=== PATIENT | female | born 1945 | race Caucasian/White ===

== ENCOUNTER 2019-08-06 10:51 | Outpatient (RCR) | payer MEDICARE, SELFPAY ==
--- NOTE | 2019-08-06 11:42 | PTOPEVAL ---
Thank you for referring this patient to [facility] [place]. Please review, sign, date and return this plan of care CONNOR. I agree with and certify that the following plan of care is medically necessary. Referring Physician Date Admitting Provider: Attending Provider: Jaret Epps, PAINTING MANAGER Referring Provider: *PT Outpatient Evaluation Start: 08/06/19 11:01 Freq: Status: Active Protocol: Document 08/06/19 11:10 [facility] (Rec: 08/06/19 11:37 [id number]) Therapy Assessment Status Assessment Status Assessment Status Evaluation Evaluation Information Problem Diagnosis L posterior shoulder pain Onset 08/01/19 Additional Evaluation Detail quick dash= 27% Subjective Information patient reports she has been Query Text:As Reported By Patient/ having pain in the L posterior Family shoulders/scapular area for the past 6 months or so. she reports the pain will come and go, but ultimately has gotten progressively worse for these past 6 months. she reports she has had an x-ray of the L shoudler/scapular area. she reports no injections recently . Prior Level of Function Comments Additional Prior Level of Function patient reports she has had Comments similar pain in the past. however, she reports prior to her flare up 6 months ago she was doing well with all activities and no pain in the L side scapular area/back/ shoulder. she reports increased pain with cleaning windows and vacuuming at home. she reports she is unable to reach behind her back fully with the L shoulder/arm. Pain Assessment Timing of Pain Assessment Timing of Pain Assessment Assessment Pain Scale Pain Scale Used Numeric (1 - 10) Self Report Pain Assessment Left Posterior Shoulder(s) Reported Pain Level 0 Current Pain Intensity 0 Lowest Pain Intensity 0 Greatest Pain Intensity 7 Pain Aggravating Factors Changing Position,Exercise/ Activity,Other Pain Aggravating Factors Other Pain Aggravating Factors cleaning home/getting dressed Pain Score Pain Score 0: Self Report Upper Extremit
== END 2019-09-03 13:40 | disposition home or self-care (01) ==
LOC: CHSPT 10:51
PROVIDERS: PCP Nurse Practitioner Family; Visit Provider Nurse Practitioner Family
DX: M25.512 Pain in left shoulder (principal)
CPT/HCPCS: 97014; 97110; 97140; 97161; G0283

== ENCOUNTER 2020-02-10 11:53 | Outpatient (CLI) | payer MEDICARE, SELFPAY ==
[2020-02-10 12:05] LABS: Basophils Absolute Auto 0.04 K/mm3 (0.00-0.10); Basophils Percent Auto 0.6 % (0.0-1.0); Eosinophils Absolute Auto 0.19 K/mm3 (0.02-0.50); Eosinophils Percent Auto 2.7 % (1.0-6.0); Hematocrit 38.6 % (35.0-42.0); Hemoglobin 12.7 g/dL (11.7-13.8); Immature Granulocyte Absolute 0.02 K/mm3 (0.00-0.00); Immature Granulocyte Percent A 0.3 % (0.0-0.0); Lymphocytes Absolute Auto 1.68 K/mm3 (1.10-4.50); Lymphocytes Percent Auto 23.8 % (18.0-42.0); Mean Corpuscular HGB Conc 32.9 g/dL (32.0-36.0); Mean Corpuscular Hemoglobin 30.2 pg (27.0-31.0); Mean Corpuscular Volume 91.7 fL (78.0-102.0); Mean Platelet Volume 9.7 fl (9.2-11.8); Monocytes Absolute Auto 0.59 K/mm3 (0.10-0.90); Monocytes Percent Auto 8.3 % (2.0-11.0); Neutrophils Absolute Auto 4.6 K/mm3 (1.7-7.2); Neutrophils Percent Auto 64.3 % (50.0-70.0); Platelet Count Result 268 K/mm3 (150-420); Red Blood Count 4.21 M/mm3 (4.20-5.40); Red Cell Distribution Width 12.7 % (11.6-14.4); White Blood Count 7.1 K/mm3 (4.8-10.8)
[2020-02-10 13:21] LABS: Alanine Aminotransferase 17 U/L (14-59); Albumin Level 3.8 g/dL (3.4-5.0); Alkaline Phosphatase 61 U/L (46-116); Anion Gap 5 mmol/L (8-16); Aspartate Amino Transferase 23 U/L (15-37); Bilirubin,Total 0.5 mg/dL (0.00-1.00); Blood Urea Nitrogen 32 mg/dL (7-18); Calcium 9.3 mg/dL (8.5-10.1); Carbon Dioxide 32 mmol/L (21-32); Chloride 103 mmol/L (98-108); Cholesterol 228 mg/dL (0-200); Estimated Glomerular Filt Rate 31; Glucose 100 mg/dL (70-99); HDL Direct 42 mg/dL (40-60); LDL Cholesterol Calculated 158 mg/dL (<130); Magnesium 1.9 mg/dL (1.8-2.4); Osmolality Calculated 296 mOsm/kg (285-295); Potassium 4.1 mmol/L (3.5-5.1); Sodium 140 mmol/L (136-145); Thyroid Stimulating Hormone 0.76 uIU/mL (0.36-3.74); Total Protein 7.5 g/dL (6.4-8.2); Triglycerides 138 mg/dL (0-150); Vitamin B12 586 pg/mL (193-986)
[2020-02-12 12:27] LABS: Vitamin D 25 Hydroxy 64 ng/mL (30-100)
== END 2020-02-10 11:54 | disposition home or self-care (01) ==
LOC: CHSLAB 11:56
PROVIDERS: PCP Nurse Practitioner Family; Visit Provider Family Medicine
DX: E55.9 Vitamin D deficiency, unspecified (principal); I10 Essential (primary) hypertension; Z79.899 Other long term (current) drug therapy; E03.9 Hypothyroidism, unspecified; R25.2 Cramp and spasm; G47.00 Insomnia, unspecified
CPT/HCPCS: 36415; 80053; 80061; 82306; 82607; 83735; 84443; 85025

== ENCOUNTER 2020-03-02 10:22 | Outpatient (CLI) | payer MEDICARE, SELFPAY ==
--- NOTE | ~2020-03-02 | XR_ITS ---
EXAMINATION: XR lumbar spine 2-3V DATE: 03/02/2020 10:53 INDICATION: Acute back pain TECHNIQUE: Anteroposterior and lateral views of the lumbar spine, and cone-down lateral view of the l umbosacral junction were obtained. COMPARISON: 08/16/2017 FINDINGS: Lumbar dextrocurvature is noted. The vertebral body heights and alignment are maintained. T here is moderate loss of intervertebral disc space height throughout the lumbar spine. Degenerative o steophytes project from the anterior endplates of multiple vertebral bodies. There is mild to moderat e facet osteoarthritis of the lower lumbar spine. Calcified atherosclerosis is noted. IMPRESSION: 1. Moderate lumbar spondylosis without acute findings or significant interval change. Reviewed, dictated and finalized at location A. IMPRESSION: 1. Moderate lumbar spondylosis without acute findings or significant interval ricky russell
== END 2020-03-02 10:23 | disposition home or self-care (01) ==
LOC: CHSIMG 10:26
PROVIDERS: PCP Nurse Practitioner Family; Visit Provider Nurse Practitioner Family
DX: M54.5 Low back pain (principal)
CPT/HCPCS: 72100

== ENCOUNTER 2020-07-09 10:35 | Outpatient (CLI) | payer MEDICARE, SELFPAY ==
[2020-07-09 23:33] LABS: SARS-CoV-2 RNA PCR Positive
== END 2020-07-09 10:36 | disposition home or self-care (01) ==
LOC: CHSLAB 10:38
PROVIDERS: PCP Nurse Practitioner Family; Visit Provider Nurse Practitioner Family
DX: U07.1 COVID-19 (principal); R50.9 Fever, unspecified; R51.9 Headache, unspecified; M25.50 Pain in unspecified joint
CPT/HCPCS: C9803; U0003

== ENCOUNTER 2020-11-28 10:13 | Outpatient (CLI) | payer MEDICARE, SELFPAY ==
--- NOTE | ~2020-11-28 | US_ITS ---
EXAMINATION: US venous doppler [facility] DATE: 11/28/2020 11:12 INDICATION: Lower limb pain. TECHNIQUE: Grayscale ultrasound images without and with compression and Doppler ultrasound images of the bilateral lower extremity veins were obtained. COMPARISON: None. FINDINGS: The visualized portions of right common femoral vein, profunda (deep) femoral vein, femoral vein, pop liteal vein, peroneal veins, posterior tibial veins, and greater saphenous vein outflow are patent. The visualized portions of left common femoral vein, profunda femoral vein, femoral vein, popliteal v ein, peroneal veins, posterior tibial veins, and greater saphenous vein outflow are patent. IMPRESSION: 1. No deep venous thrombosis. Reviewed, dictated and finalized at location A.
--- NOTE | ~2020-11-28 | CT_ITS ---
EXAMINATION: CT abdomen wo con DATE: 11/28/2020 10:50 INDICATION: Abdominal pain TECHNIQUE: Computed tomography (CT) of the abdomen was performed without intravenous contrast. The do se-length product was 119.83 mGy-cm. Automated exposure control and iterative reconstruction techniqu e were employed. COMPARISON: CT dated 07/12/2018 FINDINGS: Multiple liver cysts. Heart size normal. No significant pleural or pericardial effusion. Mo derate diffuse atherosclerosis without aneurysm. Calcified granulomas of the spleen. The pancreas, ad renal glands and kidneys are unremarkable. No lymphadenopathy. Nonobstructive bowel gas pattern. No f ree air or free fluid. No soft tissue abnormality. Moderate lumbar spondylosis. IMPRESSION: 1. No acute abdominal abnormality. Reviewed, dictated and finalized at location A.
== END 2020-11-28 10:14 | disposition home or self-care (01) ==
LOC: ANHIMG 10:21
PROVIDERS: PCP Nurse Practitioner Family; Visit Provider Nurse Practitioner Family
DX: M79.661 Pain in right lower leg (principal); M79.662 Pain in left lower leg
CPT/HCPCS: 74150; 93970

== ENCOUNTER 2020-12-31 15:11 | Outpatient (CLI) | payer MEDICARE, SELFPAY ==
--- NOTE | ~2020-12-31 | US_ITS ---
EXAMINATION: US carotid duplex BI DATE: 12/31/2020 16:00 INDICATION: Left carotid bruit. TECHNIQUE: Grayscale, color Doppler, and pulsed Doppler images of the cervical carotid arteries were obtained. The degree of vessel stenosis is placed in one of the following categories: normal, <50%, 5 0-69%, >=70% but less than near-occlusion, near-occlusion, or total occlusion. Note that percent sten osis relative to normal distal artery lumen diameter is indirectly measured from velocity measurement s as described by Chicho, et al. Radiology 2003; 229:340-346. COMPARISON: None. FINDINGS: RIGHT: The right common carotid artery (CCA) peak systolic velocity (PSV) is 74 cm/s. The right internal car otid artery (ICA) PSV is 110 cm/s. The right ICA end-diastolic velocity (EDV) is 22 cm/s. The right I CA/CCA PSV ratio is 1.5. Grayscale and color Doppler images yield an estimate of <50% diameter reduct ion from plaque in the ICA. There is antegrade flow in the right vertebral artery. LEFT: The left CCA PSV is 83 cm/s. The left ICA PSV is 135 cm/s. The left ICA EDV is 32 cm/s. The left ICA/ CCA PSV ratio is 1.6. Grayscale and color Doppler images yield an estimate of <50% diameter reduction from plaque in the ICA. There is antegrade flow in the left vertebral artery. IMPRESSION: 1. <50% stenosis in the right internal carotid artery. 2. <50% stenosis in the left internal carotid artery. Reviewed, dictated and finalized at location A.
--- NOTE | ~2020-12-31 | CT_ITS ---
EXAMINATION: CT diagnostic chest wo con EXAM DATE: 12/31/2020 15:31 INDICATION: Ascending aortic aneurysm. Breast cancer. TECHNIQUE: Spiral CT of the chest without contrast. Axial, coronal and sagittal images of the chest were reviewed. Coronal maximum intensity pixel images of chest reviewed. The dose-length product ( DLP) for this examination was 126.87 mGy-cm. The exposure was tailored according to patient size (au to mA exposure control), and iterative reconstruction (ASIR) was used as additional dose reduction te chnique. There is no prior study for comparison. FINDINGS: The ascending aorta is normal in caliber, may have been treated for aneurysm, correlate wit h surgical history. There is descending thoracic aortic arterial sclerosis and ectasia, diameter up t o 3.9 cm just along arch distal to the left subclavian. There is mild biapical scarring. There are n o pleural or pericardial effusions. Tracheobronchial tree is patent. There is no mediastinal, hil ar or axillary lymphadenopathy. There is no pneumothorax. Heart normal in size. There are hendrickson otomy wires, and cardiac/coronary surgical changes. Correlate with prior history. Multiple liver flu id density lesions probably cysts. There is thoracic spondylosis without osteoblastic or osteolytic lesions identified. Mild IMPRESSION: 1. 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 Reviewed, dictated and finalized at location A.
== END 2020-12-31 15:12 | disposition home or self-care (01) ==
LOC: ANHIMG 15:13
PROVIDERS: PCP Nurse Practitioner Family; Visit Provider Internal Medicine Cardiovascular Disease
DX: I71.2 Thoracic aortic aneurysm, without rupture (principal); R09.89 Other specified symptoms and signs involving the circulatory and respiratory systems; I65.23 Occlusion and stenosis of bilateral carotid arteries
CPT/HCPCS: 71250; 93880

== ENCOUNTER 2021-03-03 09:57 | Outpatient (CLI) | payer MEDICARE, SELFPAY ==
--- NOTE | ~2021-03-03 | US_ITS ---
EXAMINATION: US soft tissue head and neck EXAM DATE: 03/03/2021 10:18 INDICATION: R59.1 - Generalized enlarged lymph nodes. TECHNIQUE: Multiple grayscale and Doppler images of the cervical internal jugular chains were obtaine d (by a technologist who performed the scan) and subsequently reviewed. There is no prior study for comparison. FINDINGS: Scanning along the internal jugular chains demonstrated small, morphologically normal cervical lymph nodes, unremarkable sternocleidomastoid muscle. No suspicious findings. IMPRESSION: 1. Unremarkable ultrasound exam. Reviewed, dictated and finalized at location B.
== END 2021-03-03 09:58 | disposition home or self-care (01) ==
LOC: CHSIMG 10:00
PROVIDERS: PCP Family Medicine; Visit Provider Family Medicine
DX: R59.1 Generalized enlarged lymph nodes (principal)
CPT/HCPCS: 76536

== ENCOUNTER 2021-07-12 10:24 | Outpatient (CLI) | payer MEDICARE, SELFPAY ==
--- NOTE | ~2021-07-12 | CT_ITS ---
EXAMINATION:CT diagnostic chest wo con DATE: 07/12/2021 10:45 INDICATION: Ascending aortic aneurysm. TECHNIQUE: Computed tomography (CT) of the chest was performed without intravenous contrast. Automate d exposure control and iterative reconstruction technique were employed. The dose-length product (DLP ) was 143.91 mGy-cm. COMPARISON: Chest CT 12/31/2020 FINDINGS: There is mild scarring at the lung apices. There is mild peripheral radiation fibrosis in a nterolateral right lung. There is mild paraspinal scarring in right lower lobe. A calcified right ivon g nodule and calcified right hilar lymph nodes are consistent with old granulomatous disease. No pleu ral effusion. There is left atrial enlargement of the heart. There are coronary artery calcifications . No pericardial effusion. The central pulmonary arteries are enlarged, consistent with pulmonary art erial hypertension. There is a tube graft in ascending aorta. The aorta measures 3.4 cm at the isthmu s and up to 4.0 cm in the proximal descending aorta. The aorta measures 3.3 cm in mid descending aort a. There are cysts in the liver measuring up to 2.1 cm. Calcifications in the spleen are consistent w ith old granulomatous disease. There is mild thoracic spondylosis. IMPRESSION: 1. Tube graft repair of ascending aorta. Stable ectasia of descending aorta measuring 4.0 cm. Reviewed, dictated and finalized at location B. TRANSMISSION MECHANIC IMPRESSION: 1. Tube graft repair of ascending aorta. Stable ectasia of descending aorta keri suring 4.0 cm.
== END 2021-07-12 10:25 | disposition home or self-care (01) ==
LOC: ANHIMG 10:33
PROVIDERS: PCP Nurse Practitioner Family; Visit Provider Internal Medicine Cardiovascular Disease
DX: I71.2 Thoracic aortic aneurysm, without rupture (principal); Z95.828 Presence of other vascular implants and grafts
CPT/HCPCS: 71250

== ENCOUNTER 2022-08-05 13:20 | Outpatient (CLI) | payer MEDICARE, SELFPAY ==
--- NOTE | ~2022-08-05 | CT_ITS ---
EXAMINATION: CTA chest DATE: 08/05/2022 13:59 INDICATION: Aneurysm of the ascending aorta. TECHNIQUE: Computed tomographic angiography (CTA) of the chest was performed with 100 mL Omnipque-350 intravenous contrast. Maximum intensity projection 3D-reconstructions of the aorta and other arterie s were constructed by the technologist on a separate workstation. The dose-length product (DLP) was 2 09.89 mGy-cm. Automated exposure control and iterative reconstruction technique were employed. COMPARISON: 07/12/2021 FINDINGS: Again seen is stable graft repair of the ascending aorta. The aorta measures up to 3.9 cm i n the proximal descending aorta. There is no dissection of the aorta. There is enlargement of the jimmie n and central pulmonary arteries, consistent with pulmonary hypertension. There is mild dependent ate lectasis. No pleural effusion or pneumothorax. There is left atrial enlargement of the heart. There a re no pathologically enlarged thoracic lymph nodes. Calcified pulmonary nodules and calcified right h ilar lymph nodes are consistent with old granulomatous disease. Cysts of the visualized liver measure up to 2.1 cm. Punctate calcifications in an otherwise normal spleen likely represent healed granulom atous disease. There is mild thoracic spondylosis. IMPRESSION: 1. Stable ectasia of the descending aorta. 2. Stable ascending aorta repair without aneurysm or dissection. 3. Findings consistent with pulmonary hypertension. Reviewed, dictated and finalized at location B. LANCE WEB DESIGNER
[2022-08-05 13:49] LABS: Estimated Glomerular Filt Rate 40
== END 2022-08-05 13:21 | disposition home or self-care (01) ==
PROVIDERS: PCP Family Medicine; Visit Provider Internal Medicine Cardiovascular Disease
DX: I71.21 Aneurysm of the ascending aorta, without rupture (principal); I71.23 Aneurysm of the descending thoracic aorta, without rupture
CPT/HCPCS: 71275; Q9967

== ENCOUNTER 2022-10-24 13:42 | Outpatient (CLI) | payer MEDICARE, SELFPAY ==
--- NOTE | ~2022-10-24 | CT_ITS ---
EXAMINATION: CT cervical spine wo con DATE: 10/24/2022 14:09 INDICATION: Left-sided back pain. TECHNIQUE: Computed tomography (CT) of the cervical spine was performed without intravenous contrast. Automated exposure control and iterative reconstruction technique were employed. The dose-length pro duct was 140.16 mGy-cm. COMPARISON: None FINDINGS: There is mild scarring at the lung apices. There is 6 degrees dextrocurvature of cervical s pine. There is mild kyphosis of cervical spine. Vertebral body heights are normal. There is mildly de creased disc height at C2-C3 and severely decreased disc height from C3-C4 through C6-C7 with endplat e remodeling. The following disc levels are specifically discussed: C2-C3: There is mild bilateral uncovertebral joint osteoarthritis. There is mild right and severe lef t facet joint osteoarthritis. There is mild left neural foraminal stenosis. There is no central canal stenosis. C3-C4: There is severe bilateral uncovertebral joint osteoarthritis. There is severe right and modera te left facet joint osteoarthritis. There is mild bilateral neural foraminal stenosis. There is mild central canal stenosis. C4-C5: There is severe bilateral uncovertebral joint osteoarthritis. There is moderate right and irma re left facet joint osteoarthritis. There is mild bilateral neural foraminal stenosis. There is mild central canal stenosis. C5-C6: There is severe bilateral uncovertebral joint osteoarthritis. There is mild bilateral facet yosvany int osteoarthritis. There is mild bilateral neural foraminal stenosis. There is mild central canal st enosis. C6-C7: There is severe bilateral uncovertebral joint osteoarthritis. There is mild bilateral facet yosvany int osteoarthritis. There is mild bilateral neural foraminal stenosis. There is mild central canal st enosis. C7-T1: There is mild bilateral uncovertebral joint osteoarthritis. There is mild right and severe lef t facet joint osteoarthritis. There is mild left neural foraminal stenosis. There is no central canal stenosis. IMPRESSION: 1. Severe cervical spondylosis. Reviewed, dictated and finalized at location A.
--- NOTE | ~2022-10-24 | CT_ITS ---
EXAMINATION: CT thoracic lumbar wo con DATE: 10/24/2022 14:10 INDICATION: Chronic left-sided thoracic back pain. TECHNIQUE: Computed tomography (CT) of the thoracic and lumbar spine was performed without intravenou s contrast. Automated exposure control and iterative reconstruction technique were employed. The dose -length product was 457.63 mGy-cm. COMPARISON: chest CT 08/05/22 FINDINGS: CT THORACIC SPINE: There is mild scarring at the lung apices. Calcified right hilar lymph nodes are c onsistent with old granulomatous disease. Aortic atherosclerosis is noted. The aortic isthmus measure s 3.9 cm in diameter. There are coronary artery calcifications. There is 4 degrees levocurvature of t horacic spine. Vertebral body heights are normal. There is mildly decreased disc height at T2-T3 and T6-T7. There is moderately decreased disc height at T7-T8 and T8-T9, mildly decreased disc height at T9-T10 and T10-T11, and moderately decreased disc height at T11-T12. There is multilevel mild facet j oint osteoarthritis. No neural foraminal stenosis. There is mild central canal stenosis at T7-T8, T8- T9, and T9-T10. CT LUMBAR SPINE: There is a 2.2 cm cyst in left kidney. There is 6 degrees dextrocurvature of lumbar spine. Vertebral body heights are normal. There is moderately decreased disc height at L1-L2 and irma rely decreased disc height from L2-L3 through L5-S1 with endplate remodeling. The following disc leve ls are specifically discussed: L1-L2: The disc is bulging. There is mild bilateral facet joint osteoarthritis. There is mild bilater al neural foraminal stenosis. There is mild central canal stenosis. L2-L3: The disc is bulging. There is mild bilateral facet joint osteoarthritis. There is mild bilater al neural foraminal stenosis. There is mild central canal stenosis. L3-L4: The disc is bulging. There is mild right and severe left facet joint osteoarthritis. There is mild right and moderate left neural foraminal stenosis. There is mild central canal stenosis. L4-L5: The disc is bulging. There is severe bilateral facet joint osteoarthritis. There is mild bilat eral neural foraminal stenosis. There is mild central canal stenosis. L5-S1: The disc is bulging. There is severe bilateral facet joint osteoarthritis. There is mild bilat eral neural foraminal stenosis. There is mild central canal stenosis. IMPRESSION: 1. Moderate thoracic spondylosis and severe lumbar spondylosis. Reviewed, dictated and finalized at location A.
== END 2022-10-24 13:43 | disposition home or self-care (01) ==
PROVIDERS: PCP Family Medicine; Visit Provider Family Medicine
DX: M47.894 Other spondylosis, thoracic region (principal); M47.896 Other spondylosis, lumbar region; M47.892 Other spondylosis, cervical region
CPT/HCPCS: 72125; 72128; 72131

== ENCOUNTER → 2022-12-23 08:10 | Outpatient (CLI) | payer MEDICARE, SELFPAY ==
--- NOTE | ~2022-12-23 | CT_ITS ---
CT scan of the Neck Technique: 2.5 mm axial scans were obtained through the neck after intravenous administration of 75 c c Omnipaque 350. Coronal and sagittal reconstructions of the neck were obtained. Dose reduction techn ique was used on this scan by utilizing automated exposure control and iterative reconstruction techn ique. The dose-length product (DLP) was 382.58 mGy-cm. Clinical History: Cervical lymphadenopathy Findings: There is no evidence of any significant cervical lymphadenopathy. Several small, nonenlarged jugulo- digastric and posterior cervical lymph nodes are noted bilaterally. Parapharyngeal spaces appear norm al bilaterally. There is mild asymmetric prominence of the left submandibular gland, probably normal variant. Parotid glands are unremarkable. The pharyngeal mucosal spaces appear normal. No soft tissue masses are seen in the neck. The thyroid gland appears normal. Images of the lung apices reveal no abnormalities. There are extens giulia atherosclerotic calcification of the upper thoracic aorta/aortic arch, the aortic arch measuring up to 4 cm in diameter. Impression: Mild asymmetric prominence of the left submandibular gland, which could account for the clinical find ing of left-sided neck swelling. No lymphadenopathy. Ectasia of the aortic arch with extensive atherosclerotic calcification. Reviewed, dictated and finalized at location . Impression: Mild asymmetric prominence of the left submandibular gland, which could account for the clinical finding of left-sided neck swelling. No lymphadenopathy. Ectasia of the aortic arch with extensive atherosclerotic calcification.
[2022-12-23 08:49] LABS: Estimated Glomerular Filt Rate 34
== END ==
PROVIDERS: PCP Family Medicine; Visit Provider Family Medicine
DX: I70.0 Atherosclerosis of aorta (principal); R59.0 Localized enlarged lymph nodes
CPT/HCPCS: 70491; Q9967

== ENCOUNTER 2023-05-31 01:10 | Day surgery (SDC) | payer MEDICARE, SELFPAY ==
[2023-05-30 16:55] VITALS: BMI 20.1
[2023-05-31] VITALS (8 sets, daily range): BP systolic 137–156; BP diastolic 52–70; PULSE 60–98; RESP 13–20; TEMP 36.7; O2SAT 95–98; BMI 20.5
[2023-05-31 10:25] LABS: Basophils Absolute Auto 0.1 K/mm3 (0.0-0.1); Basophils Percent Auto 0.8 % (0.2-1.2); Eosinophils Absolute Auto 0.3 K/mm3 (0-0.3); Eosinophils Percent Auto 3.4 % (0-4.4); Hematocrit 42.1 % (37.0-47.0); Hemoglobin 13.1 g/dL (12.0-15.0); Immature Granulocyte Absolute 0.02 K/mm3 (0.00-0.031); Immature Granulocyte Percent A 0.3 % (0-0.5); Lymphocytes Absolute Auto 1.79 K/mm3 (0.9-3.2); Lymphocytes Percent Auto 24.7 % (18.3-44.2); Mean Corpuscular HGB Conc 31.1 g/dl (32-36); Mean Corpuscular Hemoglobin 29.1 pg (26-34); Mean Corpuscular Volume 93.6 fl (80-100); Mean Platelet Volume 9.5 fl (7.4-10.4); Monocytes Absolute Auto 0.5 K/mm3 (0.1-0.6); Monocytes Percent Auto 7.2 % (2.6-8.5); Neutrophils Absolute Auto 4.6 K/mm3 (1.3-6.7); Neutrophils Percent Auto 63.6 % (45.5-73.1); Platelet Count Result 216 k/mm3 (150-375); White Blood Count 7.3 K/mm3 (4.5-10.0)
[2023-05-31 10:35] LABS: Anion Gap 11 mmol/L (8-16); Blood Urea Nitrogen 17 mg/dL (7-17); Calcium 9.4 mg/dL (8.4-10.2); Carbon Dioxide 24 mmol/L (22-30); Chloride 106 mmol/L (98-107); Estimated CRCL calculation 40 ml/min; Estimated Glomerular Filt Rate > 60; Glucose 108 mg/dL (65-110); Potassium 3.8 mmol/L (3.4-5.0); Sodium 141 mmol/L (137-145)
--- NOTE | 2023-05-31 11:31 | PM.IMHP ---
H&P: HPI History of Present Illness Date/Time: 05/31/23 11:31 Chief Complaint: Cardiomyopathy Narrative: Patient is a 77 year old female who presents for an outpatient elective cardiac catheterization for ischemic evaluation for recent diagnosis of reduced LVEF. No chest pain. Has occasional shortness of breath during summer time but none currently. Review of Systems Review of Systems: All systems reviewed & are unremarkable except as noted in HPI and below (HPI) [facility] Past Medical History Medical History History of aortic aneurysm 2011 History of breast cancer 2001 Hypertension Surgical History Surgical History History of lumpectomy of right breast Family History Family History Father Hypertension CHF (congestive heart failure) Social History Social History Smoking packs per day: 0 Smoking cigarettes per day: 0.0 Years smoked: 0 Smoking pack-years: 0.00 Smoking status: Never smoker Second hand tobacco smoke exposure: No Alcohol intake: never Substance use: never Substance use type: does not use Living arrangements: with family Additional living arrangements comments: lives w/, Gamaliel Spiritual care concerns: No Meds Home Medications and Allergies Home Medications Medication Instructions Recorded Confirmed Type aspirin 81 mg tablet,delayed 81 mg PO DAILY 03/01/21 05/31/23 History release (Adult Low Dose Aspirin) brimonidine 0.2 %-timolol 0.5 % 1 drp RIGHT EYE QAM 03/01/21 05/31/23 History eye drops (Combigan) cholecalciferol (vitamin D3) 50 50 mcg PO DAILY 03/01/21 05/31/23 History mcg (2,000 unit) capsule levothyroxine 50 mcg tablet 50 mcg PO DAILY 03/01/21 05/31/23 History metoprolol succinate 25 mg 25 mg PO DAILY 03/01/21 05/31/23 History tablet,extended release 24 hr albuterol sulfate 90 mcg/actuation 2 puff inhalation Q6H PRN Wheezing 05/30/23 05/30/23 History aerosol inhaler amlodipine 2.5 mg tablet 2.5 mg PO DAILY 05/30/23 05/31/23 History rosuvastatin 10 mg tablet 10 mg PO DAILY 05/30/23 05/31/23 History trazodone 50 mg tablet 50 mg PO HS PRN Sleep 05/30/23 05/30/23 History valsartan 160 mg tablet 160 mg PO DAILY 05/30/23 05/31/23 History Allergies Allergy/AdvReac Type Severity Reaction Status Date / Time prednisone Allergy Unknown Angioedema Verified 05/31/23 10:11 Sulfa (Sulfonamide Allergy Unknown Unknown Verified 05/31/23 10:11 Antibiotics) Vital Signs Vital Signs - 24 hr 05/31/23 10:15 Temperature 36.7 C Pulse Rate 98 Respiratory Rate 13 Blood Pressure 156/70 H Pulse Oximetry 97 Oxygen Delivery Room Air Exam Const: General: comfortable and no acute distress HENMT: Mouth: Yes moist mucous membranes Eyes: General: appearance normal, both eyes and all related structures Sclera: sclerae normal Neck: Neck: supple Resp: Effort & Inspection: normal respiratory effort Cardio: Rate: regular rate Rhythm: regular rhythm Skin: General skin exam: normal color Neuro: Speech: normal speech Psych: Mental Status: mental status grossly normal Affect: normal affect H&P: Results Labs Labs: Short CBC 05/31/23 Range/Units 10:09 WBC 7.3 (4.5-10.0) K/mm3 Hgb 13.1 (12.0-15.0) g/dL Hct 42.1 (37.0-47.0) % Plt Count 216 (150-375) k/mm3 [facility] 05/31/23 10:09 Sodium 141 Potassium 3.8 Chloride 106 Carbon Dioxide 24 BUN 17 Creatinine 0.90 Glucose 108 Calcium 9.4 Assessment and Plan Assessment and plan (1) Cardiomyopathy: Code(s): I42.9 - Cardiomyopathy, unspecified Status: Acute Plan Proceed with [facility].
--- NOTE | 2023-05-31 11:34 | WPDMODSED ---
Moderate Sedation Note-Pt Data Patient Data Diagnosis: Cardiomyopathy Present Complaint: Cardiomyopathy Procedure to be performed/Plan: Coronary angiography, left heart cath, +/- PCI Allergies Allergy/AdvReac Type Severity Reaction Status Date / Time prednisone Allergy Unknown Angioedema Verified 05/31/23 10:11 Sulfa (Sulfonamide Allergy Unknown Unknown Verified 05/31/23 10:11 Antibiotics) Home Medications Medication Instructions Recorded Confirmed Type aspirin 81 mg tablet,delayed 81 mg PO DAILY 03/01/21 05/31/23 History release (Adult Low Dose Aspirin) brimonidine 0.2 %-timolol 0.5 % 1 drp RIGHT EYE QAM 03/01/21 05/31/23 History eye drops (Combigan) cholecalciferol (vitamin D3) 50 50 mcg PO DAILY 03/01/21 05/31/23 History mcg (2,000 unit) capsule levothyroxine 50 mcg tablet 50 mcg PO DAILY 03/01/21 05/31/23 History metoprolol succinate 25 mg 25 mg PO DAILY 03/01/21 05/31/23 History tablet,extended release 24 hr albuterol sulfate 90 mcg/actuation 2 puff inhalation Q6H PRN Wheezing 05/30/23 05/30/23 History aerosol inhaler amlodipine 2.5 mg tablet 2.5 mg PO DAILY 05/30/23 05/31/23 History rosuvastatin 10 mg tablet 10 mg PO DAILY 05/30/23 05/31/23 History trazodone 50 mg tablet 50 mg PO HS PRN Sleep 05/30/23 05/30/23 History valsartan 160 mg tablet 160 mg PO DAILY 05/30/23 05/31/23 History Current Medications: Active Medications Sodium Chloride (Normal Saline Iv) 500 mls @ 100 mls/hr IV CONT .Q5H LAYO Sedation/Anesthesia: No previous sedation/anesthesia problems (including family history). [facility] Past Medical History Medical History History of aortic aneurysm 2011 History of breast cancer 2002 Hypertension Surgical History Surgical History History of lumpectomy of right breast Family History Family History Father Hypertension CHF (congestive heart failure) Social History Social History Smoking packs per day: 0 Smoking cigarettes per day: 0.0 Years smoked: 0 Smoking pack-years: 0.00 Smoking status: Never smoker Second hand tobacco smoke exposure: No Alcohol intake: never Substance use: never Substance use type: does not use Living arrangements: with family Additional living arrangements comments: lives w/, Gamaliel Spiritual care concerns: No Mod Sed Physical Exam Physical Exam Pre Procedural Exam: Normal: Appearance, Lungs, Heart Rate, Heart Rhythm, Neuro Exam, Abdomen, Extremities and Skin Hours since solid foods: 12 Hours since liquid intake: 8 Mallampati Classification: class II Internal Medicine - PN: Obj Da Vital Signs Vital Signs: Vital Signs - 24 hr 05/31/23 10:15 Temperature 36.7 C Pulse Rate 98 Respiratory Rate 13 Blood Pressure 156/70 H Pulse Oximetry 97 Oxygen Delivery Room Air Meds/Results Medications: Active Medications Generic Name Dose Route Start Last Admin Trade Name Freq PRN Reason Stop Dose Admin Sodium Chloride 500 mls @ 100 mls/hr 05/31/23 10:00 Normal Saline Iv IV CONT .Q5H LAYO Labs 05/31/23 10:09 05/31/23 10:09 Labs: Laboratory Results - last 24 hr 05/31/23 10:09 WBC 7.3 RBC 4.50 Hgb 13.1 Hct 42.1 MCV 93.6 MCH 29.1 MCHC 31.1 L RDW 13.0 Plt Count 216 MPV 9.5 Immature Gran % (Auto) 0.3 Neut % (Auto) 63.6 Lymph % (Auto) 24.7 [place] % (Auto) 7.2 Eos % (Auto) 3.4 Baso % (Auto) 0.8 Lymph # (Auto) 1.79 [place] # (Auto) 0.5 Eos # (Auto) 0.3 Baso # (Auto) 0.1 Abs Immat Gran (auto) 0.02 Absolute Neuts (auto) 4.6 Absolute Nucleated RBC 0.0 Nucleated RBC % 0.0 Sodium 141 Potassium 3.8 Chloride 106 Carbon Dioxide 24 Anion Gap 11 BUN 17 Creatinine 0.90 Estim Creat Clear Calc 40 Estimated GFR > 60
--- NOTE | 2023-05-31 12:13 | WPDCARDPROC ---
Cardiac Cath Procedure Note Date of procedure:: 05/31/23 Performing physician:: CATHETERIZATION LABORATORY REPORT Procedure Date: 05/31/2023 Farm Service Consultant: Remi Steiner M.D., [facility]? Referring Physician: Garry Zavala M.D. ? Anesthesia: Versed and Fentanyl were ordered and given in my presence at 11:32, procedure ended at 12:04. Supervision of nurse monitored moderate sedation with Versed and Fentanyl was provided for 32 minutes. Total of Versed 2mg and Fentanyl 25mcg were administered by the Livestock Commission Agent RN Carolyn York. Pre-op Diagnosis: Coronary artery disease Post-op Diagnosis: 1. There is a small caliber RV marginal branch with a 90-99% stenosis in the mid portion; best suited for medical management. No obstructive disease in the major epicardial vessels. Mild disease in the LAD and Diagonal branch. 2. Elevated left ventricular end-diastolic pressure of 31mmHg Procedure(s): Left heart catheterization with coronary angiography Access Site: Right radial artery Brief History and Clinical Indications: Patient is a 77 year old female with recent diagnosis of heart failure with reduced ejection fraction who is referred for [facility] for ischemic evaluation. All risks, benefits and alternatives to left heart catheterization with or without percutaneous coronary intervention was discussed at length with the patient. Risk of complications including but not limited to bleeding, infection, arrhythmia, stroke, worsening kidney function, blood loss, groin hematoma, limb loss, emergency coronary artery bypass grafting, and even were discussed with the patient and all questions were answered. The patient understood and wished to proceed. Time out called, patient name, date of , medical record number, allergies, procedure performed, identify Farm Service Consultant, patient and staff member concurred with accurate data, procedure carried on. Findings: LEFT HEART CATHETERIZATION FINDINGS: 1. Left main: The left main coronary artery is widely patent without any significant obstructive disease. 2. Left anterior descending: Mild 30% disease in the mid portion of the LAD, otherwise, remainder of the LAD has luminal irregularities. There is a large caliber first diagonal branch with mild disease in its proximal-mid portion. 3. Left circumflex: The left circumflex artery and the main marginal branches have luminal irregularities without any significant obstructive angiographic disease. 4. Right coronary artery: The RCA is the dominant vessel. The RCA has luminal irregularities without any significant obstructive angiographic disease. There is a small caliber RV marginal branch with a 90-99% stenosis in the mid portion. 5. Left ventricle: A. End-diastolic pressure 31 mmHg. B. LV gram deferred. C. No significant gradient across aortic valve on catheter pullback. Description of Procedure: Informed consent signed and placed in the chart. Patient transferred to dairy and food laboratory assistant room. Prepped and draped in usual sterile fashion. 2% lidocaine injected subcutaneously in right wrist area. 22-gauge venipuncture catheter used to access the right radial artery under ultrasound guidance. 6-FR slender sheath placed in right radial artery. Nitroglycerine and Verapamil were given intraarterial through the sheath. Versacore wire advanced under fluoroscopy 5F Tig 4 diagnostic catheter engaged Left Main Coronary Artery. 5F Tig 4 diagnostic catheter engaged Right Coronary Artery Multiple orthogonal angiogram obtained and reviewed 5F Pigtail diagnostic catheter crossed aortic valve to obtain LVEDP, LV angiogram deferred. Hemostasis was achieved by application of TR band. Post Operative Condition: Stable No significant blood loss Disposition: Home Plan: The patient will be monitored in the recovery area. The above findings were discussed with the referring physician. Continue aggressive medical therapy and risk factor modification. ? Remi Steiner M.D.
== END 2023-05-31 15:25 | disposition home or self-care (01) ==
PROVIDERS: PCP Family Medicine; Visit Provider Internal Medicine
PROC: 4A023N7 Measurement of Cardiac Sampling and Pressure, Left Heart, Percutaneous Approach (ICD-10-PCS; CPT 93452; principal; 2023-05-31 11:30)
DX: I25.10 Atherosclerotic heart disease of native coronary artery without angina pectoris (principal); I42.9 Cardiomyopathy, unspecified; I10 Essential (primary) hypertension; Z79.51 Long term (current) use of inhaled steroids; Z79.82 Long term (current) use of aspirin; Z85.3 Personal history of malignant neoplasm of breast
CPT/HCPCS: 36415; 80048; 85025; 93458; A9270; C1769; C1887; C1894; J1644; J2250; J2305; J3010; J7040

== ENCOUNTER 2024-11-23 20:38 | Emergency (ER) | payer MEDICARE, SELFPAY ==
--- NOTE | ~2024-11-23 | XR_ITS ---
XR ankle RT min 3V Ordering provider: Adarsh Osorio MD History: . FALL TODAY AT 1400 HRS. LATERAL RIGHT ANKLE PAIN. . Comparison: None. FINDINGS: BONES: No acute fracture or dislocation. JOINT SPACES: Normal. SOFT TISSUES: Normal. IMPRESSION: No acute osseous abnormality of the right ankle. Reviewed, dictated and finalized at location A.
--- NOTE | ~2024-11-23 | XR_ITS ---
XR foot RT min 3V Ordering provider: Adarsh Osorio MD History: . FALL TODAY AT 1400 HRS. LATERAL RIGHT FOOT PAIN. . Comparison: None. FINDINGS: BONES: No acute fracture or dislocation. JOINT SPACES: Normal. No tarsal coalition. SOFT TISSUES: Normal. IMPRESSION: No acute osseous abnormality of the right foot. Reviewed, dictated and finalized at location A.
[2024-11-23 20:40] VITALS: BP 175/53; PULSE 77; RESP 18; TEMP 37.1; O2SAT 100
--- OUTSIDE RECORDS SUMMARY | 2024-11-23 20:40 | XMS_ITS | Referral Summary ---
Author Organization [facility] Address [address] [place] [phone] Care Team Providers Care Wharf Tender Head Name Role Phone Aba Garner MD Primary Care Provider [phone] Encounters Date Type Department Care Team Description 11/19/2024 10:15 AM CDT Office Visit [facility] Primary Care at [address] [phone] Aba Garner MD Essential hypertension (Primary Dx); Hyperlipidemia LDL goal <70; Acquired hypothyroidism; Osteopenia of multiple sites; Stage 3b chronic kidney disease (CKD) (HCC); Simple chronic bronchitis (HCC) 11/18/2024 Results Follow-Up [facility] Primary Care at [address] [phone] Aba Garner MD Lipid panel, Comprehensive metabolic panel, CBC with auto differential, Additional followed-up results: 5 11/14/2024 Orders Only [facility] Primary Care at [address] [phone] Aba Garner MD 11/14/2024 Telephone [facility] Primary Care at [address] [phone] Aba Garner MD 11/11/2024 Results Follow-Up [facility] Primary Care at [address] [phone] Chest WO Contrast 11/01/2024 Telephone [facility]iology [address] [place] [address] Richie Zavala MD Med Refill 10/31/2024 4:25 PM CDT - 10/31/2024 11:59 PM CDT Hospital Encounter [facility] [address] [place] [address] Pulmonary nodule Discharge Disposition: Discharge to home or self care 10/30/2024 Telephone [facility] [address] [place] [address] [place] Lisa R. 10/22/2024 Telephone [facility] Primary Care at [address] [phone] f/u 10/21/2024 Telephone [facility]iology [address] [place] [phone] Richie Zavala MD 10/21/2024 Orders Only [facility] Primary Care at [address] [phone] Aba Garner MD 08/27/2024 2:00 PM SHAPING MACHINE TENDER Office Visit [facility] Cardiology at [address] [place] [address] Richie Zavala MD NICM (nonischemic cardiomyopathy) (HCC) (Primary Dx); Nonrheumatic mitral valve regurgitation; Coronary artery disease involving cheesh-na coronary artery of cheesh-na heart without angina pectoris; Aneurysm of ascending aorta without rupture; Essential hypertension from Last 3 Months Allergies Active Allergy Reactions Criticality Noted Date Comments Adhesive Rash Medium 03/11/2021 Adhesive Tape-Silicones Prednisone Prochlorperazine Unknown 12/12/2018 Sulfa (Sulfonamide Antibiotics) Rash Medium 12/31 Reaction: Rash, Sulfasalazine Unknown High 05/25/2018 Medications cholecalciferol (VITAMIN D3) 2,000 unit tablet take one tab daily 0 0 09/25/19 15 Active timolol (TIMOPTIC) 0.5 % ophthalmic solution INSTILL 1 DROP INTO RIGHT EYE ONCE DAILY 05/07/20 22 Active albuterol HFA (PROVENTIL HFA,VENTOLIN HFA,PROAIR HFA) 90 mcg/actuation inhalerIndicatio ns:MUÑIZ (dyspnea on exertion) Inhale 2 puffs every 6 (six) hours as needed for wheezing 3 each 4 11/15/19 23 2024 Active aspirin 81 mg chewable tablet Take 1 tablet (81 mg total) by mouth daily Active metoprolol XL (TOPROL-XL) 25 mg extended release tabletIndication s:Essential hypertension TAKE 1 AND 1/2 TABLETS EVERY DAY 135 tablet 3 05/06/20 24 Active ipratropium (ATROVENT) 21 mcg (0.03 %) nasal sprayIndications :rhinorrhea Administer 2 sprays into each nostril every 12 (twelve) hours 30 mL 05/20/20 24 Active levothyroxine (SYNTHROID) 50 mcg tablet TAKE 1 TABLET EVERY DAY 90 tablet 3 06/03/20 24 Active sacubitriL-valsa rtan (ENTRESTO) 49-51 mg tabletIndication s:chronic heart failure Take 1 tablet by mouth 2 (two) times a day 60 tablet 11 06/19/20 24 Active traZODone (DESYREL) 50 mg tabletIndication s:Primary insomnia TAKE ONE AND A HALF TABLETS BY MOUTH DAILY 90 tablet 11/12/19 25 Active budesonide-formo teroL (SYMBICORT) 160-4.5 mcg/actuation inhalerIndicatio ns:Simple chronic bronchitis (HCC) Inhale 2 puffs 2 (two) times a day Rinse mouth with water after use. Do not swallow. 10.2 g 3 11/20/19 25 Active rosuvastatin (CRESTOR) 20 mg tabletIndication s:Coronary artery disease involving cheesh-na coronary artery of cheesh-na heart without angina pectoris,Hyperli pidemia LDL goal <70 Take 1 tablet (20 mg total) by mouth daily 90 tablet 3 11/21/19 25 2025 Active spironolactone (ALDACTONE) 25 mg tabletIndication s:NICM (nonischemic cardiomyopathy) (HCC),Nonrheumat ic mitral valve regurgitation Take 1 tablet (25 mg total) by mouth daily 90 tablet 3 11/21/19 25 2025 Active meclizine (ANTIVERT) 12.5 mg tablet Take 1 tablet (12.5 mg total) by mouth 3 (three) times a day as needed for dizziness 90 tablet 4 06/07/20 22 2024 Discontinued rosuvastatin (CRESTOR) 20 mg tabletIndication s:Coronary artery disease involving cheesh-na coronary artery of cheesh-na heart without angina pectoris,Hyperli pidemia LDL goal <70 Take 1 tablet (20 mg total) by mouth daily 90 tablet 3 01/09/20 24 2024 Discontinued(R eorder) spironolactone (ALDACTONE) 25 mg tabletIndication s:NICM (nonischemic cardiomyopathy) (HCC),Nonrheumat ic mitral valve regurgitation Take 1 tablet (25 mg total) by mouth daily 90 tablet 3 01/09/20 24 2024 Discontinued(R eorder) benzonatate (TESSALON) 200 mg capsuleIndicatio ns:Acute non-recurrent pansinusitis Take 1 capsule (200 mg total) by mouth 3 (three) times a day as needed for cough 30 capsule 03/20/20 24 2024 Discontinued montelukast (SINGULAIR) 10 mg tablet Take 1 tablet (10 mg total) by mouth nightly 30 tablet 05/20/20 24 2024 Discontinued traZODone (DESYREL) 50 mg tabletIndication s:Primary insomnia TAKE ONE AND A HALF TABLET BY MOUTH 90 tablet 08/29/19 25 2024 Discontinued traZODone (DESYREL) 50 mg tabletIndication s:Primary insomnia TAKE ONE AND A HALF TABLETS BY MOUTH DAILY 150 tablet 11/05/19 25 2024 Discontinued budesonide-formo teroL (SYMBICORT) 160-4.5 mcg/actuation inhalerIndicatio ns:Simple chronic bronchitis (HCC) Inhale 2 puffs 2 (two) times a day Rinse mouth with water after use. Do not swallow. 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 Assessment & Plan (12/26/2023 1:05 PM CDT): Anticoagulation may be needed, but we need to make sure there is no contraindication as her risk of splenic hemorrhage is higher Considering other etiologies, also Infectious, neoplastic No history consistent with trauma Chronic renal impairment, stage 3a 08/16/2023 Nonrheumatic mitral valve regurgitation 06/27/20 Coronary artery disease invo lving cheesh-na coronary artery of cheesh-na heart without angina pectoris 06/27/2023 NICM (nonischemic cardiomyopathy) 06/27/2023 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 Bradley, he has a satellite office here). Will hold of on referral to spine surgeon for now, will focus on pain management first NSAIDs and steroids contraindicated, so we will have to rely on Tylenol Lumbar disc disease 11/14/2022 Chronic left-sided thoracic back pain 08/27/2022 Assessment & Plan (10/19/2022 12:05 PM CDT): Will try increasing the Flexeril to 7.5 mg--did not see much improvement with 5 mg, denies side effects or drowsiness. Encourage to continue her otc/conservative measures also. Pt unaware she had imaging ordered, printed out the CT ordered at previous visit so she can complete. Assessment & Plan (09/17/2022 1:54 PM CDT): Will encourage following the back exercises discussed at last visit; do for 2-4 weeks or until improvement Cease if worsening, and let us know Checking thoracic spine with CT PT referral remains possible angle as well Continue topical heat, TENS, PRN cyclobenzaprine As-needed (PRN) tylenol for discomfort/pain; Aleve OTC twice daily as needed may be helpful as well, but only use if tylenol and other measures are unhelpful Assessment & Plan (08/27/2022 2:53 PM SHAPING MACHINE TENDER): Likely muscular in origin Trial flexeril Continue topical heat; consider TENS unit No corresponding finding on the CT noted by the radiologist Set of upper back exercises given; try those for 4 week Encounter for Medicare annual wellness exam 01/2022 Assessment & Plan (05/20/2024 2:01 PM SHAPING MACHINE TENDER): A(n) yearly Medicare Annual Wellness Visit has been performed today. Doris Swenson is not up to date on screening tests. She is in need of DEXA and Hepatitis B. She is up to date on needed preventative vaccinations. We discussed healthy lifestyle habits, educational material has been given. Medications reviewed, changes documented as per the medical record and discussed with patient along with risks vs benefits. Specific topics reviewed: drugs, ETOH, and tobacco, importance of regular dental care, importance of regular exercise, importance of varied diet, limit TV, media violence, minimize junk food, and seat belts. Return in 6 months Assessment & Plan (01/06/2023 4:10 PM CDT): A(n) yearly Medicare Annual Wellness Visit has been performed today. Doris Swenson is up to date on screening tests. She is in need of None- no screening indicated at this time. She is up to date on needed preventative vaccinations. We discussed healthy lifestyle habits, educational material has been given. Medications reviewed, changes documented as per the medical record and discussed with patient along with risks vs benefits. BP is controlled Renal function has dipped about 20%. Not in severe territory, but want to get that reversed back to usual baseline. Discussed improving hydration, cutting back on sodium intake (aim for <3000 mg per day) We may need to have you see a ornithology teacher if it doesn't rebound Cholesterol has improved greatly Continuing current regimen for now Fatigue- a bit odd that it is linked to being outdoors and active. Checked EKG today, considering echocardiogram perhaps stress as it has been 3 years. The renal function could be at play as well. Will plan referral on ankle lesion CT didn't show enlarged nodes, but one of the salivary glands was a bit enlarged, no other note of abnormality. We will monitor the gland Return in 3 months Assessment & Plan (01/07/2022 6:12 PM CDT): A(n) yearly Medicare Annual Wellness Visit has been performed today. Doris Swenson is not up to date on screening tests. She is in need of DEXA- ordered. She is not up to date on needed preventative vaccinations; She is in need of Tdap/Td, Pneumonia (Prevnar-13 or Pneumovax-23) and Zoster. Advised to check out Severiano's Leg Cramps Potential orthostatic hypotension. Continue hydrating. Advising a trial of hkyi-ufa-zyoxnxa melatonin 5-10 mg nightly; will see if that is effective over the next few weeks. I will see back sooner than usual to re-evaluate the blood pressure. Please monitor at home, would like some numbers, both standing and sitting blood pressures, 1 to 2 times a day for me to review at follow-up. Continuing Exforge, metoprolol XL at current dose for now. Cholesterol is mildly elevated. Might consider adding a statin given history of atherosclerosis and aneurysm/ectasia noted on the aorta Rhinitis 09/19/2021 Assessment & Plan (09/19/2021 9:11 PM CDT): Continue with Zandra 60mg one bid for 10 days. [place] spray to help loosen an nasal congestion Primary insomnia 09/19/2021 Assessment & Plan (11/23/2023 3:26 PM CDT): Does not feel like the 50mg of Trazodone is efficient, will increase to 75mg. Assessment & Plan (09/19/2021 9:17 PM CDT): Note talked about seeing a service technician copier if we can't getting the insomnia under control Note talked about taking Melatonin 10mg gummie to help with sleep. Also no stimulants before bedtime. May want to take a lavender bath to relax before bed. Descending thoracic aortic aneurysm 06/23/2021 Immunization due 06/10/2021 Assessment & Plan (06/10/2021 2:14 PM SHAPING MACHINE TENDER): In need of second pneumonia shot Needs shingles shot and TDAP Need for hepatitis C screening test 06/10/2021 Assessment & Plan (06/10/2021 2:36 PM SHAPING MACHINE TENDER): Hepatitis C screen today. Acquired hypothyroidism 06/10/2021 Assessment & Plan (09/19/2021 8:47 PM CDT): Note doing well with thyroidism Continue with medication as ordered. Last lab work was in Normal rnaage Left carotid bruit 12/18/2020 Essential hypertension 04/07/2020 Assessment & Plan (07/15/2022 11:24 AM SHAPING MACHINE TENDER): Stay hydrated Crestor trial; if cramps increase or there is muscle pain, we will stop Rechecking liver, renal function and LDL for next follow up Adding hydrochlorothiazide, continue Exforge Assessment & Plan (09/19/2021 8:23 PM CDT): Blood pressure has been doing well, no issures at present. Continues to take medication as ordered. Continue with exercise at least 3 times a week for 30 minutes. Assessment & Plan (06/10/2021 2:06 PM SHAPING MACHINE TENDER): Continue with medications as ordred. Exercise, watch weight. Chest tightness 04/07/2020 MUÑIZ (dyspnea on exertion) 04/07/2020 Assessment & Plan (11/14/2022 2:36 PM CDT): Will get cxr today, though exam was benign Considering reactive airway issue related to humidity, or heretofore undiagnosed asthma; we can consider heart failure, though I think this is unlikely Incomplete left bundle branch block (LBBB) 04/07 Hyperlipidemia LDL goal <70 04/07/2020 Assessment & Plan (06/10/2021 2:11 PM SHAPING MACHINE TENDER): Continue with medications as ordered. Do lab in June of this year. Exercise at least 3 times a week. Ascending aortic aneurysm 09/24/2014 Overview (10/07/2016): Ascending aortic aneurysm Assessment & Plan (09/19/2021 8:17 PM CDT): Revewed resuls of report with patient. Note at this time will continue to monitor. Would like her to see Dr Bowles a thoracic surgeon Who she would like to see .him Assessment & Plan (06/10/2021 2:06 PM SHAPING MACHINE TENDER): [facility] Continue to monitor medication, BP. If pain would get worse, please call or seek care Immunizations Immunization Administration Dates Next Due Flucelvax Influenza Quad 04/20/2022 Influenza, Quadrivalent, Spl it, Preservative Free, Intramuscular 04/28/2021 Influenza, Unspecified 08/16/2023(Deferr ed: Patient Refused),2022(Deferred: Patient Refused),05/08/2020,04/22/2020, 020 Pneumococcal Conjugate PCV 13 08/04/2021 Pneumococcal Polysaccharide PPV23 10/02/2020 Social History Tobacco Use Types Packs/Day Years Used Date Smoking Tobacco: Never Passive Smoke Exposure: Never Smokeless Tobacco: Never Tobacco Cessation:Counseling Given: Not Answered Alcohol Use Standard Drinks/Week Comments No 0 (1 standard drink = 0.6 oz pur e alcohol) Social Connection and Isolat ion Panel [NHANES] Answer Date Recorded In a typical week, how many times do you talk on the phone with family, friends, or neighbors? More than three times a week 01/04/2022 Frequency of Social Gatherin gs with Friends and Family Not on file 01/04/2022 How often do you attend chur ch or christianity services? More than 4 times per year 01/04/2022 Do you belong to any clubs o r organizations such as sabianist groups, unions, fraternal or athletic groups, or school groups? No 01/04/2022 How often do you attend meet ings of the clubs or organizations you belong to? Never 01/04/2022 Are you , , di vorced, , never , or living with a partner? 01/04/2022 AUDIT-C Answer Date Recorded Q1: How often do you have a drink containing alcohol? Never 06/12/2023 Q2: How many drinks containi ng alcohol do you have on a typical day when you are drinking? Patient does not drink Q3: How often do you have si x or more drinks on one occasion? Never 06/12/2023 Overall Financial Resource Strain (CARDIA) Answe r Date Recorded How hard is it for you to pa y for the very basics like food, housing, medical care, and heating? Not hard at all 01/04/2022 PHQ-2 Answer Date Recorded PHQ-2 Total Score (If total score is 3 or more points, staff should administer the PHQ-9) 0 11/19/2024 [facility] - Occupational Stress Questionnaire Answer Date Recorded Do you feel stress - tense, restless, nervous, or anxious, or unable to sleep at night because your mind is troubled all the time - these days? Only a little 01/04/2022 Exercise Vital Sign Answer Date Recorde d On average, how many days pe r week do you engage in moderate to strenuous exercise (like a brisk walk)? 0 days Minutes of Exercise per Session Not on file 01/04/2022 Hunger Vital Sign Answer Date Recorded Within the past 12 months, y ou worried that your food would run out before you got the money to buy more. Never true 01/05/20 22 Within the past 12 months, t he food you bought just didn't last and you didn't have money to get more. Never true 01/04/2022 PRAPARE - Transportation Answer Date Re corded In the past 12 months, has l ack of transportation kept you from medical appointments or from getting medications? No 10/2021 In the past 12 months, has l ack of transportation kept you from meetings, work, or from getting things needed for daily living? No 01/04/2022 Housing Stability Vital Sign Answer Yuniel e Recorded Unable to Pay for Housing in the Last Year Not o n file 01/04/2022 In the last 12 months, how many places have you lived? 1 01/04/2022 Unstable Housing in the Last Year Not on file 01/04/2022 Personal Safety Answer Date Recorded Have you ever been in or are you currently in a harmful physical or emotional relationship or is someone making you feel afraid or unsafe? 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 Not on file Not on file Not on file Last Filed Vital Signs Vital Sign Reading Time Taken Comments Blood Pressure 140/74 11/19/2024 10:34 AM CDT Pulse 60 11/19/2024 10:34 AM CDT Temperature 36.1 C (96.9 F) 11/19/2024 10:34 AM CDT Respiratory Rate 16 11/19/2024 10:34 AM CDT Oxygen Saturation 98% 11/19/2024 10:34 AM CDT Inhaled Oxygen Concentration - - Weight 55.3 kg (122 lb) 11/19/2024 10:34 AM CDT Height 165.1 cm (5' 5 ) 11/19/2024 10:34 AM CDT Body Mass Index 20.3 11/19/2024 10:34 AM CDT Plan of Treatment Not on file Procedures Procedure Name Priority Date/Time Associated Diagnosis Comments VITAMIN D 25 HYDROXY Routine 11/14/2024 9:49 AM CDT TSH W/REFL FT4 Routine 11/14/2024 9:49 AM CDT HEPATITIS B IMMUNITY PANEL Routine 11/14/2024 9:49 AM CDT CBC WITH AUTO DIFFERENTIAL Routine 11/14/2024 9:49 AM CDT COMPREHENSIVE METABOLIC PANEL Routine 11/14/2024 9:49 AM CDT LIPID PANEL Routine 11/14/2024 9:49 AM CDT HEPATITIS C ANTIBODY Routine 11/14/2024 9:49 AM CDT HEPATITIS B SURFACE ANTIGEN Routine 11/14/2024 9:[address] CHEST WO CONTRAST Schedule Routine, Read Routine (OP Routine) 10/31/2024 4:39 PM CDT Pulmonary nodule DEXA AXIAL SKELETON BONE DENSITY 1 OR MORE SITES Schedule Routine, Read Routine (OP Routine) 07/05/2024 1:14 PM SHAPING MACHINE TENDER Screening for osteoporosis Asymptomatic menopausal state STOOL DNA COLOGUARD Routine 08/29/2023 3:00 PM SHAPING MACHINE TENDER Colon cancer screening COLONOSCOPY 11/29/2013 12:00 AM CDT from Last 3 Months or Most Recently Relevant to Health Maintenance Results * HEPATITIS B IMMUNITY PANEL (11/14/2024 9:49 AM CDT) Hep B core IgG/IgM NON-REACTI VE NON-REACTI VE [facility] Comment: For additional information, please refer to http://education.Baby.com.br/faq/GVT356 (This link is being provided for informational/ educational purposes only.) HBsAb (immune status) NON-REACTI VE NON-REACTI VE [facility] 11/14/2024 9:49 AM CDT 11/15/2024 6:44 AM CDT Narrative [facility] - 11/16/2024 1:24 AM CDT FASTING:YES FASTING: YES us Aba Garner MD LAB BLOOD ORDERABLES Final Result [facility] [address] [place] [address] * TSH W/REFL FT4 (11/14/2024 9:49 AM CDT) TSH 1.34 0.40 - 4.50 mIU/L [facility] 11/14/2024 9:49 AM CDT 11/15/2024 6:44 AM CDT Narrative [facility] - 11/16/2024 1:24 AM CDT FASTING:YES FASTING: YES us Aba Garner MD LAB BLOOD ORDERABLES Final Result [facility] [address] [place] [address] * (ABNORMAL) CBC with auto differential (11/14/2024 9:49 AM CDT) Pathologist [facility] WBC 5.8 3.8 - 10.8 Thousand/u L [facility] RBC, POC 4.22 3.80 - 5.10 Million/uL [facility] Hgb 12.8 11.7 - 15.5 g/dL [facility] Hct 41.2 35.0 - 45.0 % [facility] MCV 97.6 80.0 - 100.0 fL [facility] MCH 30.3 27.0 - 33.0 pg [facility] MCHC 31.1(L) 32.0 - 36.0 g/dL [facility] Comment: For adults, a slight decrease in the calculated MCHC value (in the range of 30 to 32 g/dL) is most likely not clinically significant; however, it should be interpreted with caution in correlation with other red cell parameters and the patient's clinical condition. Rdw 12.2 11.0 - 15.0 % [facility] Platelets 196 140 - 400 Thousand/u L [facility] MPV 10.0 7.5 - 12.5 fL [facility] Neutrophils, abs 3,486 1,500 - 7,800 cells/uL [facility] Lymphocytes, abs 1,473 850 - 3,900 cells/uL [facility] Monocyte abs 528 200 - 950 cells/uL [facility] Eosinophils, abs 261 15 - 500 cells/uL [facility] Basophils, abs 52 0 - 200 cells/uL [facility] Neutrophils 60.1 % [facility] Lymphocyte pct 25.4 % [facility] Monocytes 9.1 % [facility] Eosinophils 4.5 % [facility] Basophils 0.9 % [facility] 11/14/2024 9:49 AM CDT 11/15/2024 6:44 AM CDT Narrative [facility] - 11/16/2024 1:24 AM CDT FASTING:YES FASTING: YES Aba Garner MD LAB BLOOD ORDERABLES Final Result Performing Organization Address [facility] de Phone Number [facility] [address] [place] [address] * Hepatitis C antibody (11/14/2024 9:49 AM CDT) Pathologist [facility] Hep C Ab NON-REACTI VE NON-REACT KAYLEE [facility] Comment: HCV antibody was non-reactive. There is no laboratory evidence of HCV infection. In most cases, no further action is required. However, if recent HCV exposure is suspected, a test for HCV RNA (test code 71935) is suggested. For additional information please refer to http://education.Baby.com.br/faq/BFY77f8 (This link is being provided for informational/ educational purposes only.) 11/14/2024 9:49 AM CDT 11/15/2024 6:44 AM CDT Narrative [facility] - 11/16/2024 1:24 AM CDT FASTING:YES FASTING: YES Aba Garner MD LAB MICROBIOLOGY - GENERAL ORDERABLES Final Result Performing Organization Address [facility] Co de Phone Number [facility] [address] [place] [address] * Vitamin D 25 hydroxy (11/14/2024 9:49 AM CDT) Vitamin D 25-OH 71 30 - 100 ng/mL [facility] Comment: Vitamin D Status 25-OH Vitamin D: Deficiency: <20 ng/mL Insufficiency: 20 - 29 ng/mL Optimal: > or = 30 ng/mL For 25-OH Vitamin D testing on patients on D2-supplementation and patients for whom quantitation of D2 and D3 fractions is required, the [facility](TM) 25-OH VIT D, (D2,D3), LC/MS/MS is recommended: order code 03427 (patients >2yrs). See Note 1 Note 1 For additional information, please refer to http://Z Plane.[employer]/faq/WYF412 (This link is being provided for informational/ educational purposes only.) 11/14/2024 9:49 AM CDT 11/15/2024 6:44 AM CDT Narrative [facility] - 11/16/2024 1:24 AM CDT FASTING:YES FASTING: YES Aba Garner MD LAB BLOOD ORDERABLES Final Result Performing Organization Address [facility] de Phone Number [facility] [address] [place] [address] * Hepatitis B Surface Antigen (11/14/2024 9:49 AM CDT) HepBsAg NON-REACTI VE NON-REACTI VE [facility] Comment: For additional information, please refer to http://Z Plane.Baby.com.br/faq/JMH582 (This link is being provided for informational/ educational purposes only.) 11/14/2024 9:49 AM CDT 11/15/2024 6:44 AM CDT Narrative [facility] - 11/16/2024 1:24 AM CDT FASTING:YES FASTING: YES Aba Garner MD LAB MICROBIOLOGY - GENERAL ORDERABLES Final Result Performing Organization Address [facility] Co de Phone Number [facility] [address] [place] [address] * Lipid panel (11/14/2024 9:49 AM CDT) Cholesterol 156 <200 mg/dL [facility] HDL 52 > OR = 50 mg/dL [facility] Triglycerides 85 <150 mg/dL [facility] LDL 86 mg/dL (calc) [facility] Comment: Reference range: <100 Desirable range <100 mg/dL for primary prevention; <70 mg/dL for patients with CHD or diabetic patients with > or = 2 CHD risk factors. LDL-C is now calculated using the Shawn calculation, which is a validated novel method providing better accuracy than the Friedewald equation in the estimation of LDL-C. Tommy SS et al. ANAHY. 2013;310(68): 4168-7967 (http://education.Algal Scientific/faq/EHS586) Chol/HDL ratio 3.0 <5.0 (calc) [facility] Non-HDL, (LDL+VLDL) 104 <130 mg/dL (calc) [facility] Comment: For patients with diabetes plus 1 major ASCVD risk factor, treating to a non-HDL-C goal of <100 mg/dL (LDL-C of <70 mg/dL) is considered a therapeutic option. 11/14/2024 9:49 AM CDT 11/15/2024 6:44 AM CDT Narrative [facility] - 11/16/2024 1:24 AM CDT FASTING:YES FASTING: YES us Aba Garner MD LAB BLOOD ORDERABLES Final Result [facility] [address] [place] [address] * (ABNORMAL) Comprehensive metabolic panel (11/14/2024 9:49 AM CDT) [facility] Glucose 90 65 - 99 mg/dL [facility] Comment: Fasting reference interval BUN 24 7 - 25 mg/dL [facility] Creatinine 1.29(H) 0.60 - 0.95 mg/dL [facility] eGFR 42(L) > OR = 60 mL/min/1.7 3m2 [facility] BUN/creat ratio 19 6 - 22 (calc) [facility] Sodium 139 135 - 146 mmol/L [facility] Potassium, pl 4.5 3.5 - 5.3 mmol/L [facility] Chloride 103 98 - 110 mmol/L [facility] CO2 27 20 - 32 mmol/L [facility] Calcium 9.6 8.6 - 10.4 mg/dL [facility] Protein, sr 7.2 6.1 - 8.1 g/dL [facility] Albumin 4.1 3.6 - 5.1 g/dL [facility] GLOBULIN 3.1 1.9 - 3.7 g/dL (calc) [facility] Alb/glob ratio 1.3 1.0 - 2.5 (calc) [facility] Bilirubin, total 0.5 0.2 - 1.2 mg/dL [facility] Alk phos 54 37 - 153 U/L [facility] AST 18 10 - 35 U/L [facility] ALT (SGPT) 8 6 - 29 U/L [facility] 11/14/2024 9:49 AM CDT 11/15/2024 6:44 AM CDT Narrative [facility] - 11/16/2024 1:24 AM CDT FASTING:YES FASTING: YES us Aba Garner MD LAB BLOOD ORDERABLES Final Result Performing Organization Address City/State/[facility] Co de Phone Number [facility] [address] [place] [address] * CT Chest WO Contrast (10/31/2024 4:39 PM CDT) Anatomical Region Laterality Modality Body N/A Computed Tomogra phy 11/11/2024 8:47 AM CDT Narrative 11/11/2024 9:40 AM CDT EXAM DESCRIPTION: CT CHEST WO CONTRAST REASON FOR STUDY: Lung nodule, > 8mm Follow up lung nodule, non smoker, hx of breast cancer and thoracic aortic aneurysm TECHNIQUE: CT scan of the chest performed without intravenous contrast using helical scanning technique. Reconstructed coronal and sagittal MPR images reviewed. All images stored on PACS. Automated exposure control was used as a dose optimization technique for this examination. COMPARISON: 05/27/2024 FINDINGS: The sensitivity for detection of solid visceral lesions is diminished without the use of intravenous contrast. LUNGS: Interval increase in mild tree-in-bud opacities within the right middle lobe medial segment. Grossly stable minimal tree-in-bud opacities within the right lower lobe (series 3, image 48). No focal consolidation. 3 mm pulmonary nodule right middle lobe lateral segment (series 3, image 50). PLEURA: No effusion. No pneumothorax. MEDIASTINUM/TAMARA: No identified masses or abnormal nodes. HEART: Mild cardiomegaly. No pericardial effusion. Mitral annulus calcification. VASCULATURE: Advanced atherosclerotic changes are present with coronary artery calcification. The ascending aorta measures 3.4 cm in maximal diameter. The descending aorta measures 4.2 cm slightly distal to the origin of the left subclavian artery. The descending aorta has a maximal diameter of 3.7 cm, unchanged. The main pulmonary artery is dilated measuring 4.3 cm in diameter. AXILLA: No adenopathy. CHEST WALL: No masses. No subcutaneous air. HARDWARE/LINES/TUBES: None. UPPER ABDOMEN: There are numerous cysts in the liver. MUSCULOSKELETAL: No significant abnormality. Median sternotomy wires are present. OTHER: No other significant abnormality. IMPRESSION: 1. Mild interval increase in tree-in-bud opacities in the right middle lobe. Grossly unchanged minimal tree-in-bud opacities in the right lower lobe. This likely represents an infectious or inflammatory process. 2. Unchanged dilation of the main pulmonary artery measuring 4.3 cm. This can be seen in the setting of chronic pulmonary hypertension. 3. Grossly unchanged atherosclerotic disease of the aorta. THIS IS AN ELECTRONICALLY VERIFIED FINAL REPORT 11/11/2024 9:40 AM - Electronically signed by Elian Kwon M.D. MM: MM Report ID: [id number] Reading Location: [place] [address] Procedure Note Elian Kwon MD - 11/11/2024 EXAM DESCRIPTION: CT CHEST WO CONTRAST REASON FOR STUDY: Lung nodule, > 8mm Follow up lung nodule, non smoker, hx of breast cancer and thoracic aortic aneurysm TECHNIQUE: CT scan of the chest performed without intravenous contrastusing helical scanning technique. Reconstructed coronal and sagittal MPR images reviewed. All images stored on PACS. Automated exposure control was usedas a dose optimization technique for this examination. COMPARISON: 05/27/2024 FINDINGS: The sensitivity for detection of solid visceral lesions is diminishedwithout the use of intravenous contrast. LUNGS: Interval increase in mild tree-in-bud opacities within the rightmiddle lobe medial segment. Grossly stable minimal tree-in-bud opacities withinthe right lower lobe (series 3, image 48). No focal consolidation. 3 mm pulmonary nodule right middle lobe lateral segment (series 3, image 50). PLEURA: No effusion. No pneumothorax. MEDIASTINUM/TAMARA: No identified masses or abnormal nodes. HEART: Mild cardiomegaly. No pericardial effusion. Mitral annulus calcification. VASCULATURE: Advanced atherosclerotic changes are present with coronary artery calcification. The ascending aorta measures 3.4 cm in maximal diameter. The descending aorta measures 4.2 cm slightly distal to theorigin of the left subclavian artery. The descending aorta has a maximaldiameter of 3.7 cm, unchanged. The main pulmonary artery is dilated measuring 4.3 cmin diameter. AXILLA: No adenopathy. CHEST WALL: No masses. No subcutaneous air. HARDWARE/LINES/TUBES: None. UPPER ABDOMEN: There are numerous cysts in the liver. MUSCULOSKELETAL: No significant abnormality. Median sternotomy wires are present. OTHER: No other significant abnormality. IMPRESSION: 1. Mild interval increase in tree-in-bud opacities in the right middlelobe. Grossly unchanged minimal tree-in-bud opacities in the right lower lobe. This likely represents an infectious or inflammatory process. 2. Unchanged dilation of the main pulmonary artery measuring 4.3 cm.This can be seen in the setting of chronic pulmonary hypertension. 3. Grossly unchanged atherosclerotic disease of the aorta. THIS IS AN ELECTRONICALLY VERIFIED FINAL REPORT 11/11/2024 9:40 AM - Electronically signed by Elian Kwon M.D. 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 LEFT HIP: Total BMD is 0.719 g/cm2 T-score is -1.8 This is decreased in comparison to prior exam which is statistically significant. Femoral neck BMD is 0.593 g/cm2 T-score is -2.3 FRAX: 10 year risk for a major osteoporotic fracture is 15 %, 10 year risk for a hip fracture is 5.0 % IMPRESSION: Low Bone Mass. REFERENCE: Bone mineral density: T-Score: Normal (T-score above or = -1.0) Low bone mass (T-score between -1.0 and -2.5) replaces the previously used term osteopenia Osteoporosis (T-score = or below -2.5) Z-Score: Within the expected range for age (Z-score above -2.0) Below the expected range for age (Z-score is -2.0 or below) Please see below follow up recommendations. Medical evaluation for secondary causes of low bone mineral density may be appropriate. FRAX is a World Health Organization validated fracture risk assessment tool that calculates a person's 10 year probability of a major osteoporosis related fracture and hip fracture. According to the National Osteoporosis Foundation guidelines, postmenopausal women and men age 50 or older with low bone mass and a 10 year probability of a major osteoporosis related fracture = or greater than 20% or a 10 year probability of a hip fracture = or greater than 3% should be considered for pharmacological treatment for the prevention of osteoporosis. For further information, including treatment recommendations, please refer to the 2019 ISCD Official Positions (http://www.iscd.org) and the NOF's Clinician's Guide to Prevention and Treatment of Osteoporosis (http://www.nof.org/professionals/clinical-guidelines) THIS IS AN ELECTRONICALLY VERIFIED FINAL REPORT 07/07/2024 9:09 AM - Electronically signed by Adarsh Crockett M.D. MF: ANGELY Report ID: [id number] Reading Location: [address] Note Adarsh Crockett MD - 07/07/2024 EXAM DESCRIPTION: DEXA AXIAL SKELETON BONE DENSITY 1 OR MORE SITES REASON FOR STUDY: 79 y/o year old F with given history of: screen osteoporosis Osteoporosis screening Post menopausal Cat Scan Tech/Model: [employer] SL (S/N [id number]) CLINICAL INFORMATION: Current height: 63.5 inches Maximum height: 65 inches Weight: 122 pounds Risk factors: Postmenopausal, cancer COMPARISON: 04/07/2022 FINDINGS: AP LUMBAR SPINE L1-L4: Total BMD is 0.946 g/cm2 T-score is -0.9 This is increased in comparison to prior exam which is not statistically significant. LEFT HIP: Total BMD is 0.719 g/cm2 T-score is -1.8 This is decreased in comparison to prior exam which is statistically significant. Femoral neck BMD is 0.593 g/cm2 T-score is -2.3 FRAX: 10 year risk for a major osteoporotic fracture is 15 %, 10 year risk for ahip fracture is 5.0 % IMPRESSION: Low Bone Mass. REFERENCE: Bone mineral density: T-Score: Normal (T-score above or = -1.0) Low bone mass (T-score between -1.0 and -2.5) replaces thepreviously used term osteopenia Osteoporosis (T-score = or below -2.5) Z-Score: Within the expected range for age (Z-score above -2.0) Below the expected range for age (Z-score is -2.0 or below) Please see below follow up recommendations. Medical evaluation forsecondary causes of low bone mineral density may be appropriate. FRAX is a World Health Organization validated fracture risk assessmenttool that calculates a person's 10 year probability of a major osteoporosisrelated fracture and hip fracture. According to the National OsteoporosisFoundation guidelines, postmenopausal women and men age 50 or older with low bonemass and a 10 year probability of a major osteoporosis related fracture = or greater than 20% or a 10 year probability of a hip fracture = or greaterthan 3% should be considered for pharmacological treatment for the preventionof osteoporosis. For further information, including treatment recommendations, please referto the 2019 ISCD Official Positions (http://www.iscd.org) and the NOF's Clinician's Guide to Prevention and Treatment of Osteoporosis (http://www.nof.org/professionals/clinical-guidelines) THIS IS AN ELECTRONICALLY VERIFIED FINAL REPORT 07/07/2024 9:09 AM - Electronically signed by Adarsh Crockett M.D. MF: ANGELY Report ID: [id number] Reading Location: [place] [address] Aba Garner MD IM DXA PROCEDURES Final Re sult * Stool DNA - Cologuard (08/29/2023 3:00 PM SHAPING MACHINE TENDER) Stool DNA - Cologuard Negative Negative [facility] (CLIA #:[id number]) Comment: NEGATIVE TEST RESULT. A negative Cologuard result indicates a low likelihood that a colorectal cancer (CRC) or advanced adenoma (adenomatous polyps with more advanced pre-malignant features) is present. The chance that a person with a negative Cologuard test has a colorectal cancer is less than 1 in 1500 (negative predictive value >99.9%) or has an advanced adenoma is less than 5.3% (negative predictive value 94.7%). These data are based on a prospective cross-sectional study of 10,000 individuals at average risk for colorectal cancer who were screened with both Cologuard and colonoscopy. (Kia Schroeder, N Engl J Med 2014;370(14):9736-6588) The normal value (reference range) for this assay is negative. COLOGUARD RE-SCREENING RECOMMENDATION: Periodic colorectal cancer screening is an important part of preventive healthcare for asymptomatic individuals at average risk for colorectal cancer. Following a negative Cologuard result, the [place] Cancer Society and U.S. Multi-Society Task Force screening guidelines recommend a Cologuard re-screening interval of 3 years. References: [place] Cancer Society Guideline for Colorectal Cancer Screening: https://www.cancer.org/cancer/zihja-alcoec-ydgogo/prbhzfvkv-rfprnnsif-iwhqvub/ac s-rec ommendations.html.; Marc DK, Niyah SOFIA, Oleg SerranoK, Colorectal Cancer Screening: Recommendations for Physicians and Patients from the U.S. Multi-Society Task Force on Colorectal Cancer Screening , Am J Gastroenterology 2017; 112:4997-1713. TEST DESCRIPTION: Composite algorithmic analysis of stool DNA-biomarkers with hemoglobin immunoassay. Quantitative values of individual biomarkers are not reportable and are not associated with individual biomarker result reference ranges. Cologuard is intended for colorectal cancer screening of adults of either sex, 45 years or older, who are at average-risk for colorectal cancer (CRC). Cologuard has been approved for use by the U.S. FDA. The performance of Cologuard was established in a cross sectional study of average-risk adults aged 50-84. Cologuard performance in patients ages 45 to 49 years was estimated by sub-group analysis of near-age groups. Colonoscopies performed for a positive result may find as the most clinically significant lesion: colorectal cancer [4.0%], advanced adenoma (including sessile serrated polyps greater than or equal to 1cm diameter) [20%] or non- advanced adenoma [31%]; or no colorectal neoplasia [45%]. These estimates are derived from a prospective cross-sectional screening study of 10,000 individuals at average risk for colorectal cancer who were screened with both Cologuard and colonoscopy. (Kia Schroeder, N Engl J Med 2014;370(14):3021-5419.) Cologuard may produce a false negative or false positive result (no colorectal cancer or precancerous polyp present at colonoscopy follow up). A negative Cologuard test result does not guarantee the absence of CRC or advanced adenoma (pre-cancer). The current Cologuard screening interval is every 3 years. ([place] Cancer Society and U.S. Multi-Society Task Force). Cologuard performance data in a 10,000 patient pivotal study using colonoscopy as the reference method can be accessed at the following location: www.[employer] SL.[employer]/results. Additional description of the Cologuard test process, warnings and precautions can be found at www.Vast[employer] Acquisitionsrd.com. Stool 08/29/2023 3:00 PM SHAPING MACHINE TENDER 08/30/2023 10:13 AM SHAPING MACHINE TENDER us Aba Garner MD LAB BODY FLUIDS AND STOOLS ORDERABLES Final Result [employer] (CLIA #:[id number]) [place] [address] * COLONOSCOPY (11/29/2013 12:00 AM CDT) Anatomical Region Laterality Modality Other Narrative 11/29/2013 12:00 AM CDT Ordered by an unspecified provider. Procedure Note Provider, MD Morenita - 11/29/2013 12:00 AM CDT PROCEDURE REPORT Patient: DORIS SWENSON Account: [id number] Room No: : 1945 Patient Type: [facility] Attend.: Josr Mendez M.D. Admit Date: 11/29/2013 Dict.: Josr Mendez M.D. Disch. Date: 11/29/2013 NAME OF PROCEDURE: Colonoscopy. HISTORY A 68-year-old female who presents for screening colonoscopy. PHYSICAL EXAMINATION GENERAL: Well developed female. LUNGS: Clear. CARDIOVASCULAR EXAMINATION: Unremarkable. PROCEDURE Colonoscopy was performed with the Olympus video endoscope. Patient was premedicated by anesthesia. On digital exam, no abnormalities arepalpable. We inserted the endoscope and advanced it to the cecum. The colon was excellently prepped and visualized. We carefully searched the colonicmucosa and could find no evidence of inflammation or neoplasia anywhere throughthe length of the bowel. Patient tolerated the procedure withoutdifficulty. POSTOPERATIVE DIAGNOSIS Normal colonoscopy. PLAN Surveillance in 10 years. Josr Mendez M.D. /clifton TD: 12/03/2013 09:20 CC: Dr. Jaret Epps Authenticated by Josr Mendez MD On 12/03/2013 10:31:05 AM us Historical Provider ENDOSCOPY PROCEDURES Fatuma l Result from Last 3 Months or Most Recently Relevant to Health Maintenance Insurance MEDICARE [facility] Address: [address] [address] [place] [address] COMMERCIAL GENERIC [facility] MEDICARE SUPPLEMENT INSURANCE [employer] MEDICARE SUPPLEMENT INSURANCE MEDICARE Care Teams Wharf Tender Head Relationship Specialty Start Date End Date Aba Garner MD [address] [place] [address] PCP - General Family Medicine 12/01/21
--- OUTSIDE RECORDS SUMMARY | 2024-11-23 20:40 | XMS_ITS | Encounter Summary ---
Author Organization [facility] Healthcare Address [address] [place] [address] Care Team Providers Care Marriage Counselor Minister Name Role Phone Aba Garner MD Primary Care Provider [phone] Encounter Details Date Type Department Care Team (Late st Contact Info) Description 11/11/2024 Results Follow-Up [facility] Primary Care at [place] [address] [place] [address] Aba Garner MD [address] [place] [address] [address] [place] [address] CT Chest WO Contrast Social History Tobacco Use Types Packs/Day Years Used Date Smoking Tobacco: Never Passive Smoke Exposure: Never Smokeless Tobacco: Never Alcohol Use Standard Drinks/Week Comments No 0 [...] often do you attend chur ch or scientology services? 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 Do not swallow. 10.2 g 3 11/11/2024 11/19/2024 documented in this encounter Plan of Treatment Not on file documented as of this encounter Visit Diagnoses Diagnosis Simple chronic bronchitis (HCC)- Primary Simple chronic bronchitis documented in this encounter Care Teams Marriage Counselor Minister Relationship Specialty Start Date End Date Aba Garner MD [address] [place] [address] PCP - General Family Medicine 12/01/21 documented as of this encounter
--- OUTSIDE RECORDS SUMMARY | 2024-11-23 20:40 | XMS_ITS | Encounter Summary ---
Author Organization [facility] Healthcare Address [address] [place] [address] Care Team Providers Care Desktop Support Specialist Name Role Phone Aba Garner MD Primary Care Provider [phone] Encounter Details Date Type Department Care Team (Late st Contact Info) Description 11/18/2024 Results Follow-Up [facility] Primary Care at [address] [address] Aba Garner MD [address] [place] [address] [address] [place] [address] Lipid panel, Comprehensive metabolic panel, CBC with auto differential, Additional followed-up results: 5 Social History Tobacco Use Types Packs/Day Years [...] often do you attend chur ch or presybeterian services? 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
--- OUTSIDE RECORDS SUMMARY | 2024-11-23 20:40 | XMS_ITS | Clinical Summary ---
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,Hyperli pidemia LDL goal [...] 3a 08/16/2023 Nonrheumatic mitral valve regurgitation 06/27/20 23 Coronary artery disease invo lving ottawa coronary artery of ottawa heart without angina pectoris 06/27/2023 NICM (nonischemic [...] unhelpful Assessment & Plan (08/27/2022 2:53 PM DIGITAL ASSET MANAGER): Likely muscular in origin Trial flexeril Continue topical heat; consider TENS unit No corresponding finding on the CT noted by the radiologist Set of upper back exercises given; try those for 4 week Encounter for Medicare annual wellness exam 01/2022 Assessment & Plan (05/20/2024 2:01 PM DIGITAL ASSET MANAGER): A(n) yearly Medicare Annual Wellness Visit has [...] may need to have you see a radiation oncology nurse if it doesn't rebound Cholesterol has improved [...] hypotension. Continue hydrating. Advising a trial of pexs-qta-vouajup melatonin 5-10 mg nightly; will see if [...] Zandra 60mg one bid for 10 days. [place] spray to help loosen an nasal congestion Primary insomnia 09/19/2021 Assessment & Plan (11/23/2023 3:26 PM CDT): Does not feel like the 50mg of Trazodone is efficient, will increase to 75mg. Assessment & Plan (09/19/2021 9:17 PM CDT): Note talked about seeing a senior j2ee developer if we can't getting the insomnia under control Note talked about taking Melatonin 10mg gummie to help with sleep. Also no stimulants before bedtime. May want to take a lavender bath to relax before bed. Descending thoracic aortic aneurysm 06/23/2021 Immunization due 06/10/2021 Assessment & Plan (06/10/2021 2:14 PM DIGITAL ASSET MANAGER): In need of second pneumonia shot Needs shingles shot and TDAP Need for hepatitis C screening test 06/10/2021 Assessment & Plan (06/10/2021 2:36 PM DIGITAL ASSET MANAGER): Hepatitis C screen today. Acquired hypothyroidism 06/10/2021 Assessment & Plan (09/19/2021 8:47 PM CDT): Note doing well with thyroidism Continue with medication as ordered. Last lab work was in Normal rnaage Left carotid bruit 12/18/2020 Essential hypertension 04/07/2020 Assessment & Plan (07/15/2022 11:24 AM DIGITAL ASSET MANAGER): Stay hydrated Crestor trial; if cramps increase [...] minutes. Assessment & Plan (06/10/2021 2:06 PM DIGITAL ASSET MANAGER): Continue with medications as ordred. Exercise, watch [...] 04/07/2020 Assessment & Plan (06/10/2021 2:11 PM DIGITAL ASSET MANAGER): Continue with medications as ordered. Do lab [...] .him Assessment & Plan (06/10/2021 2:06 PM DIGITAL ASSET MANAGER): Refer to Dr. Jacinto Faria, [facility] Continue to monitor medication, BP. If pain would get worse, please call or seek care Encounters Date Type Department Care Team Description 11/19/2024 10:15 AM CDT Office Visit [facility] Primary Care at [address] [phone] Aba Garner MD Essential hypertension (Primary Dx); Hyperlipidemia LDL goal <70; Acquired hypothyroidism; Osteopenia of multiple sites; Stage 3b chronic kidney disease (CKD) (HCC); Simple chronic bronchitis (HCC) 11/18/2024 Results Follow-Up [facility] Primary Care at [address] [phone] Aba Garner MD Lipid panel, Comprehensive metabolic panel, CBC with auto differential, Additional followed-up results: 5 11/14/2024 Orders Only [facility] Primary Care at [address] [phone] Aba Garner MD 11/14/2024 Telephone [facility] Primary Care at [address] [phone] Aba Garner MD 11/11/2024 Results Follow-Up [facility] Primary Care at [address] [phone] Chest WO Contrast 11/01/2024 Telephone [facility] [address] [place] [phone] Richie Zavala MD Med Refill 10/31/2024 4:25 PM CDT - 10/31/2024 11:59 PM CDT Hospital Encounter [facility] [address] [place] [phone] Pulmonary nodule Discharge Disposition: Discharge to home or self care 10/30/[address] [address] Lisa Magana 10/22/2024 Telephone [facility] Primary Care at [address] [phone] f/u 10/21/2024 Telephone [facility] [address] [place] [phone] Richie Zavala MD 10/21/2024 Orders Only [facility] Primary Care at [address] [phone] Aba Garner MD 08/27/2024 2:00 PM DIGITAL ASSET MANAGER Office Visit [facility] Cardiology at [address] [place] [phone] Richie Zavala MD NICM (nonischemic cardiomyopathy) (HCC) (Primary Dx); Nonrheumatic mitral valve regurgitation; 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; Aneurysm of ascending aorta without rupture; Essential hypertension from Last 3 Months Immunizations Immunization Administration Dates Next Due Flucelvax Influenza Quad 04/20/2022 Influenza, Quadrivalent, Spl it, Preservative Free, Intramuscular 04/28/2021 Influenza, Unspecified 08/16/2023(Deferr ed: Patient Refused),2022(Deferred: Patient Refused),05/08/2020,04/22/2020, 020 Pneumococcal Conjugate PCV 13 08/04/2021 Pneumococcal Polysaccharide PPV23 10/02/2020 Surgical History Surgery Date Site/Laterality Comments OTHER SURGICAL HISTORY 2001 - 07/02/2002 right partial mastectomy w/ axillary dissection CARPAL TUNNEL RELEASE 2001 - 07/02/2002 Left Carpal tunnel release BREAST LUMPECTOMY right lumpectomy OTHER SURGICAL HISTORY replacement of ascending aortic anuuerysm BREAST BIOPSY 2014 - 07/02/2015 Right Medical History Medical History Date Comments Hypertension Hypertension Hx Other Medical 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; Laterality: right Anxiety disorder Anxiety Hypertension Hypertension Malignant neoplasm of female breast (HCC) Cancer, breast; Comments: PIPO Toro 09/24/2014 - Arthritis Arthritis; Comme nts: SAMUELS 09/24/2014 - Hx Other Medical hyperlipidemia; Comments: SAMUELS 09/24/2014 - Hx Other Medical scarlet fever; Comments: SAMUELS 09/24/2014 - Hx Other Medical glaucoma; Comme nts: SAMUELS 09/24/2014 - Hx Other Medical ascending aorti c aneurysm; Comments: [facility] 09/23/2015 - Chemotherapy adverse reaction History of radiation therapy 2001 rig th breast ca History of chemotherapy 2002 right br east ca Family History Medical History Relation Name Comments Coronary artery disease Father No Known Problems Maternal Grandfather No Known Problems Maternal Grandmother Hypertension Mother Hypertension; Liver cancer Mother Cancer, unknown ; Stroke Mother No Known Problems Paternal Grandfather No Known Problems Paternal Grandmother Dementia Sister Colon cancer Neg Hx Relation Name Status Comments Father (Age 91) Maternal Grandfather Maternal Grandmother Mother (Age 76) Paternal Grandfather Paternal Grandmother Sister Alive Social History Tobacco Use Types Packs/Day Years [...] 01/04/2022 How often do you attend chur or zoroastrian services? 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 Not on file Not on file Not on file Obstetrics History Para Term AB IAB SAB Ectopic Multiple Livin g Live Births 1 1 1 Date Outcome GA Total Labor Labor/2nd/3rd Weight Sex Type Anes PTL Bibi A1 A5 Name Clin Term Last Filed Vital Signs Vital Sign Reading [...] 11/19/2024 10:34 AM CDT Plan of Treatment Health Maintenance Due Date Last Done Comments Influenza Vaccine (Season Ended) 2025 04/20/2022, 05/11/2021, 04/28/2021, Additional history exists Fall Risk Assessment 05/20/2025 05/20/2024, 01/22/2024, 06/12/2023, Additional history exists Well Visit 65+ 05/20/2025 05/20/2024, 12/2022, 01/04/2022 Depression Screening 11/19/2025 11/19/2024, 05/20/2024, 01/22/2024, Additional history exists Zoster Vaccine (1 of 2) 11/19/2025 Post poned from 1994 (Insurance / Financial) DTaP/Tdap/Td Vaccine (1 - Tdap) 07/02/2026 Postponed from 1955 (Insurance / Financial) Osteoporosis Screening-Bone Density Scan 07/05/2026 07/05/2024, 04/07/2022 Colon Cancer Screening-CT Colonography Discontinued 11/29/2013 Colon Cancer Screening-Colonoscopy Discontinued 11/29/2013 Colon Cancer Screening-Sigmoidoscopy Discontinued 11/29/2013 Pneumococcal vaccine 65+ Completed 08/04/2021, 08/2020 Colon Cancer Screening-DNA Stool Discontinued 08/29/2023, 11/29/2013 Colon Cancer Screening-FIT Discontinued 08/29/2023, Colon Cancer Screening-FOBT Discontinued 08/29/2023, 11/29/2013 Colorectal Cancer Screening Discontinued Hepatitis B Screening Completed 11/14/2024 Procedures Procedure Name Priority Date/Time Associated Diagnosis [...] Read Routine (OP Routine) 07/05/2024 1:14 PM DIGITAL ASSET MANAGER Screening for osteoporosis Asymptomatic menopausal state STOOL DNA COLOGUARD Routine 08/29/2023 3:00 PM DIGITAL ASSET MANAGER Colon cancer screening COLONOSCOPY 11/29/2013 12:00 AM CDT from Last 3 Months or Most Recently Relevant to Health Maintenance Results * HEPATITIS B IMMUNITY PANEL (11/14/2024 9:49 AM CDT) Hep B core IgG/IgM NON-REACTI VE NON-REACTI VE [facility] Comment: For additional information, please refer to http://education.Zero2IPO.AlixaRx/faq/BKS936 (This link is being provided for informational/ educational purposes only.) HBsAb (immune status) NON-REACTI VE NON-REACTI VE [facility] 11/14/2024 9:49 AM CDT 11/15/2024 6:44 AM CDT Narrative [facility] - 11/16/2024 1:24 AM CDT FASTING:YES FASTING: YES Aba Garner MD LAB BLOOD ORDERABLES Final Result [facility] [address] [place] [address] * TSH W/REFL FT4 (11/14/2024 9:49 AM CDT) Pathologist [facility] TSH 1.34 0.40 - 4.50 mIU/L [facility] 11/14/2024 9:49 AM CDT 11/15/2024 6:44 AM CDT Narrative [facility] - 11/16/2024 1:24 AM CDT FASTING:YES FASTING: YES Aba Garner MD LAB BLOOD ORDERABLES Final Result Performing Organization Address City/[facility] Co de Phone Number [facility] [address] [place] [address] * (ABNORMAL) CBC with auto differential (11/14/2024 9:49 AM CDT) WBC 5.8 3.8 - 10.8 Thousand/u L [...] BLOOD ORDERABLES Final Result Performing Organization Address City/State/[facility] Co de Phone Number [facility] [address] [place] [address] * Hepatitis C antibody (11/14/2024 9:49 AM CDT) Pathologist [facility] Hep C Ab NON-REACTI VE NON-REACT KAYLEE [facility] Comment: HCV antibody was non-reactive. There is no laboratory evidence of HCV infection. In most cases, no further action is required. However, if recent HCV exposure is suspected, a test for HCV RNA (test code 64558) is suggested. For additional information please refer to http://education.Inter[employer] Entertainment/faq/JZN18g6 (This link is being provided for informational/ educational purposes only.) 11/14/2024 9:49 AM CDT 11/15/2024 6:44 AM CDT Narrative [facility] - 11/16/2024 1:24 AM CDT FASTING:YES FASTING: YES Aba Garner MD LAB MICROBIOLOGY - GENERAL ORDERABLES Final Result Performing Organization Address City/[facility] Co de Phone Number [facility] [address] [place] [address] * Vitamin D 25 hydroxy (11/14/2024 9:49 AM CDT) Pathologist [facility] Vitamin D 25-OH 71 30 - 100 ng/mL [facility] Comment: Vitamin D Status 25-OH Vitamin D: Deficiency: <20 ng/mL Insufficiency: 20 - 29 ng/mL Optimal: > or = 30 ng/mL For 25-OH Vitamin D testing on patients on D2-supplementation and patients for whom quantitation of D2 and D3 fractions is required, the QuestAssureD(TM) 25-OH VIT D, (D2,D3), LC/MS/MS is recommended: order code 13004 (patients >2yrs). See Note 1 Note 1 For additional information, please refer to http://education.Timecros/faq/NAD461 (This link is being provided for informational/ educational purposes only.) 11/14/2024 9:49 AM CDT 11/15/2024 6:44 AM CDT Narrative [facility] - 11/16/2024 1:24 AM CDT FASTING:YES FASTING: YES Aba Garner MD LAB BLOOD ORDERABLES Final Result Performing Organization Address City/[facility] Co de Phone Number [facility] [address] [place] [address] * Hepatitis B Surface Antigen (11/14/2024 9:49 AM CDT) [facility] HepBsAg NON-REACTI VE NON-REACTI VE [facility] Comment: For additional information, please refer to http://education.Zero2IPO.AlixaRx/faq/UFR995 (This link is being provided for informational/ educational purposes only.) 11/14/2024 9:49 AM CDT 11/15/2024 6:44 AM CDT Narrative [facility] - 11/16/2024 1:24 AM CDT FASTING:YES FASTING: YES Aba Garner MD LAB MICROBIOLOGY - GENERAL ORDERABLES Final Result [facility] [address] [place] [address] * Lipid panel (11/14/2024 9:49 AM CDT) [...] factors. LDL-C is now calculated using the Tommy-Poe calculation, which is a validated novel method providing better accuracy than the Friedewald equation in the estimation of LDL-C. Tommy SS et al. ANAHY. 2013;310(19): 3409-7957 (http://education.[employer].AlixaRx/faq/YHH218) Chol/HDL ratio 3.0 <5.0 (calc) [facility] [...] LAB BLOOD ORDERABLES Final Result [facility] [address] [address] [phone] * (ABNORMAL) Comprehensive metabolic panel (11/14/2024 9:49 AM CDT) Pathologist [facility] Glucose 90 65 - 99 mg/dL [facility] [...] Garner MD LAB BLOOD ORDERABLES Final Result [facility] [address] [address] [phone] * CT Chest WO Contrast (10/31/2024 4:39 [...] Elian Kwon M.D. MM: MM Report ID: [id number] Reading Location: [id number] Procedure Note Elian Kwon MD - 11/11/2024 [...] Elian Kwon M.D. MM: MM Report ID: [id number] Reading Location: [place] [address] Aba Garner MD IMG CT PROCEDURES Final Res ult * Dexa Axial Skeleton Bone Density 1 or 2 Site (07/05/2024 1:14 PM DIGITAL ASSET MANAGER) Anatomical Region Laterality Modality Body N/A Other 07/07/2024 9:07 AM DIGITAL ASSET MANAGER Narrative 07/07/2024 9:09 AM DIGITAL ASSET MANAGER EXAM DESCRIPTION: DEXA AXIAL SKELETON BONE DENSITY 1 OR MORE SITES REASON FOR STUDY: 79 y/o year old F with given history of: screen osteoporosis Osteoporosis screening Post menopausal Physician Office Assistant/Model: [employer] (S/N [id number]) CLINICAL INFORMATION: Current height: 63.5 inches Maximum [...] Adarsh Crockett M.D. MF: ANGELY Report ID: [id number] Reading Location: [id number] [facility] Note Adarsh Crockett MD - 07/07/2024 EXAM DESCRIPTION: DEXA AXIAL SKELETON BONE DENSITY 1 OR MORE SITES REASON FOR STUDY: 79 y/o year old F with given history of: screen osteoporosis Osteoporosis screening Post menopausal Physician Office Assistant/Model: [employer] (S/N [id number]) CLINICAL INFORMATION: Current height: 63.5 inches Maximum [...] Adarsh Crockett M.D. MF: ANGELY Report ID: [id number] Reading Location: [id number] Aba Garner MD G DXA PROCEDURES Final Re sult * Stool DNA - Cologuard (08/29/2023 3:00 PM DIGITAL ASSET MANAGER) Stool DNA - Cologuard Negative Negative [employer] (CLIA #:[id number]) Comment: NEGATIVE TEST RESULT. A negative Cologuard [...] screened with both Cologuard and colonoscopy. (Kia Sarmiento et al, N Engl J Med 2014;370(14):9588-5718) The normal value (reference range) for this assay is negative. COLOGUARD RE-SCREENING RECOMMENDATION: Periodic colorectal cancer screening is an important part of preventive healthcare for asymptomatic individuals at average risk for colorectal cancer. Following a negative Cologuard result, the [place] Cancer Society and U.S. Multi-Society Task Force screening guidelines recommend a Cologuard re-screening interval of 3 years. References: [place] [employer] Guideline for Colorectal Cancer Screening: https://www.cancer.org/cancer/kilrw-lwktvb-giiqsb/tzqlwlmnl-kugxralpx-cfcvozm/ac s-rec ommendations.html.; Marc DOCKERY, Niyah CR, Oleg SerranoK, Colorectal Cancer Screening: Recommendations for Physicians and Patients from the U.S. Multi-Society Task Force on Colorectal Cancer Screening , Am J Gastroenterology 2017; 112:0817-7542. TEST DESCRIPTION: Composite algorithmic analysis of stool [...] screened with both Cologuard and colonoscopy. (Kia Valverde al, N Engl J Med 2014;370(14):3451-0404.) Cologuard may produce a false negative or false positive result (no colorectal cancer or precancerous polyp present at colonoscopy follow up). A negative Cologuard test result does not guarantee the absence of CRC or advanced adenoma (pre-cancer). The current Cologuard screening interval is every 3 years. ([place] Cancer Society and U.S. Multi-Society Task Force). Cologuard performance data in a 10,000 patient pivotal study using colonoscopy as the reference method can be accessed at the following location: www.[employer]/results. Additional description of the Cologuard test process, warnings and precautions can be found at www.cologuard.com. Stool 08/29/2023 3:00 PM DIGITAL ASSET MANAGER 08/30/2023 10:13 AM DIGITAL ASSET MANAGER Aba Garner MD LAB BODY FLUIDS AND STOOLS ORDERABLES Final Result [facility] (CLIA #:[id number]) [place] [address] [place] [address] * COLONOSCOPY (11/29/2013 12:00 AM CDT) Anatomical Region Laterality Modality Other Narrative 11/29/2013 12:00 AM CDT Ordered by an unspecified provider. Procedure Note Provider, MD Morenita - 11/29/2013 12:00 AM CDT PROCEDURE REPORT Patient: DORIS SWENSON Account: [id number] Room No: : 1945 Patient Type: SDS Attend.: Josr Mendez M.D. Admit Date: 11/29/2013 [...] Surveillance in 10 years. Josr Mendez M.D. DR/clifton TD: 12/03/2013 09:20 CC: Dr. Jaret Epps Authenticated by Josr Mendez MD On 12/03/2013 10:31:05 AM Historical Provider ENDOSCOPY PROCEDURES Fatuma l Result from Last 3 Months or Most Recently Relevant to Health Maintenance Insurance MEDICARE COMMERCIAL GENERIC [facility] MEDICARE SUPPLEMENT INSURANCE [facility] MEDICARE SUPPLEMENT INSURANCE MEDICARE Care Teams Oven Technician Relationship Specialty Start Date End Date Aba Garner MD [address] [place] [address] PCP - General Family Medicine 12/01/21
[2024-11-23] MEDS: ACETAMINOPHEN 325 MG TABLET 650 MG PO (20:52)
--- NOTE | 2024-11-23 21:40 | ED.LOWEXIN ---
HPI - Extremity Injury (Lower) General Chief Complaint: Extremity Injury, Lower Stated Complaint: lower extremity injury Time Seen by Provider: 11/23/24 20:41 Source: patient and family Mode of arrival: ambulatory Limitations: no limitations History of Present Illness HPI Narrative: this is a an 79-year-old female that presents with some an injury to her right foot and ankle after she tripped while at home causing bruising and mild swelling to the anterior aspect of her right foot with good range of motion although limited secondary to pain and swelling with no numbness or tingling no other injuries noted. MD complaint: ankle injury and foot injury Onset (ago): hour(s) Injury: Right: ankle ( Bruising and mild swelling) and foot ( bruising with mild swelling) Type of Injury: blunt Place: home Severity: mild Severity scale (1-10): 5 Relieving factors: nothing Exacerbating factors: weight bearing Context: fall Related Data Home Medications ?Medication ?Instructions ?Recorded ?Confirmed ?Last Taken ?Type aspirin 81 mg tablet,delayed 81 mg PO DAILY 03/01/21 05/31/23 05/31/23 History release (Adult Low Dose Aspirin) brimonidine 0.2 %-timolol 0.5 % 1 drp RIGHT EYE QAM 03/01/21 05/31/23 05/31/23 History eye drops (Combigan) cholecalciferol (vitamin D3) 50 50 mcg PO DAILY 03/01/21 05/31/23 05/31/23 History mcg (2,000 unit) capsule levothyroxine 50 mcg tablet 50 mcg PO DAILY 03/01/21 05/31/23 05/31/23 History metoprolol succinate 25 mg 25 mg PO DAILY 03/01/21 05/31/23 05/31/23 History tablet,extended release 24 hr albuterol sulfate 90 mcg/actuation 2 puff inhalation Q6H PRN Wheezing 05/30/23 05/30/23 Unknown History aerosol inhaler amlodipine 2.5 mg tablet 2.5 mg PO DAILY 05/30/23 05/31/23 05/30/23 History rosuvastatin 10 mg tablet 10 mg PO DAILY 05/30/23 05/31/23 05/31/23 History trazodone 50 mg tablet 50 mg PO HS PRN Sleep 05/30/23 05/30/23 Unknown History valsartan 160 mg tablet 160 mg PO DAILY 05/30/23 05/31/23 05/31/23 History rosuvastatin 20 mg tablet 20 mg PO DAILY 11/23/24 11/23/24 Unknown History Allergies Allergy/AdvReac Type Severity Reaction Status Date / Time prednisone Allergy Unknown Angioedema Verified 11/23/24 20:59 Sulfa (Sulfonamide Allergy Unknown Unknown Verified 11/23/24 20:59 Antibiotics) Review of Systems Review of Systems: All systems reviewed & are unremarkable except as noted in HPI and below PMFSH Past Medical History Medical History History of aortic aneurysm 2011 History of breast cancer 2001 Hypertension Surgical History Surgical History History of lumpectomy of right breast Family History Family History Father Hypertension CHF (congestive heart failure) Social History Social History Smoking packs per day: 0 Smoking cigarettes per day: 0.0 Years smoked: 0 Smoking pack-years: 0.00 Smoking status: Never smoker Second hand tobacco smoke exposure: No Alcohol intake: never Substance use: never Substance use type: does not use Living arrangements: with family Additional living arrangements comments: lives w/, Gamaliel Spiritual care concerns: No Exam Const: General: healthy appearing and no acute distress Nutritional Appearance: well nourished Orientation/consciousness: patient oriented x3 Limitations: no limitations Eyes: Conjunctivae: conjunctivae normal Pupils: Equal, round and reactive pupils present Neck: Neck: normal visual inspection Chest: Chest palpation & inspection: normal inspection of the chest Resp: Effort & Inspection: normal respiratory effort Auscultation: clear to auscultation bilaterally Cardio: Rate: regular rate Rhythm: regular rhythm GI: GI Palp: Yes Soft to palpation Skin: Wounds: wounds noted Neuro: General: patient oriented x3 and moves all extremities Extrem: General: normal to inspection Other: Bruising right foot Course Course Emergency Course: patient received 650mg p.o. Tylenol after reassessment pain level has improved, Marcus wrap applied to the right foot and ankle, x-ray reviewed shows no acute abnormalities. Vital Signs Vital signs: Vital Signs Temperature 37.1 C 11/23/24 20:40 Pulse Rate 77 11/23/24 20:40 Respiratory Rate 18 11/23/24 20:40 Blood Pressure 175/53 H 11/23/24 20:40 Pulse Oximetry 100 11/23/24 20:40 Oxygen Delivery Room Air 11/23/24 20:40 Temperature 37.1 C 11/23/24 20:40 Pulse Rate 77 11/23/24 20:40 Respiratory Rate 18 11/23/24 20:40 Blood Pressure 175/53 H 11/23/24 20:40 Pulse Oximetry 100 11/23/24 20:40 Oxygen Delivery Room Air 11/23/24 20:40 Critical Care Time Critical Care Time Critical Care Time: No Discharge Plan Discharge Clinical Impression: Ankle sprain and strain Patient Disposition: Home Condition: Stable Instructions: Antibiotic Form, Ankle Sprain (ED) Additional Instructions: advised patient to take Tylenol or Motrin as needed for foot and ankle pain continue Marcus wrap and follow with primary if symptoms persist or worsen. Patient Language: Sinhala Prescriptions: No Action rosuvastatin 20 mg tablet 20 mg PO DAILY metoprolol succinate 25 mg tablet extended release 24 hr 25 mg PO DAILY levothyroxine 50 mcg tablet 50 mcg PO DAILY aspirin [Adult Low Dose Aspirin] 81 mg tablet,delayed release (DR/EC) 81 mg PO DAILY cholecalciferol (vitamin D3) 50 mcg (2,000 unit) capsule 50 mcg PO DAILY Combigan 0.2-0.5 % drops 1 drp RIGHT EYE QAM amlodipine 2.5 mg tablet 2.5 mg PO DAILY Rx Instructions: takes with valsartan 160mg. valsartan 160 mg tablet 160 mg PO DAILY Rx Instructions: takes with amlodipine 2.5mg po daily trazodone 50 mg tablet 50 mg PO HS PRN (Reason: Sleep) albuterol sulfate 90 mcg/actuation HFA aerosol inhaler 2 puff INHALATION Q6H PRN (Reason: Wheezing) rosuvastatin 10 mg tablet 10 mg PO DAILY Follow-up/Referrals: Patsy,Aba Hackett MD [Primary Care Provider] - Time of Disposition: 21:44
[2024-11-23 22:25] VITALS: BP 140/67; PULSE 75; RESP 17; TEMP 37.1; O2SAT 100
== END 2024-11-23 22:25 | disposition home or self-care (01) ==
PROVIDERS: Emergency Provider Emergency Medicine; PCP Family Medicine
DX: S93.401A Sprain of unspecified ligament of right ankle, initial encounter (principal); W18.40XA Slipping, tripping and stumbling without falling, unspecified, initial encounter
CPT/HCPCS: 73610; 73630; 99283; A9270